=== PATIENT | female | born 1985 | race Caucasian/White ===

== ENCOUNTER → 2017-08-08 08:30 | Outpatient (CLI) | payer BC, SELFPAY ==
[2017-08-08 12:22] LABS: ALB/GLOB Ratio 0.8 RATIO (0.9-2.4); AST(SGOT) 16 U/L (15-37); Alanine Aminotransfer ALT/SGPT 23 U/L (13-56); Albumin, Serum 3.2 g/dL (3.2-5.0); Alkaline Phosphatase 55 U/L (45-117); Anion Gap 8 (5-15); BUN 8 mg/dL (7-18); BUN/Creat Ratio 14.6 RATIO (10-20); Calcium,Total 8.7 mg/dL (8.5-10.1); Chloride 105 mmol/L (98-107); Cholesterol 201 mg/dL (200); Creatinine, Serum 0.55 mg/dL (0.55-1.02); EST Glomerular Filtration Rate 139 mL/min (>60); Est Glom Filt Rate - Afr Amer 168 mL/min (>60); Globulin 4.1 g/dL (2.2-4.2); Glucose 80 mg/dL (70-110); High Density Lipoprotein 51 mg/dL; Potassium 3.6 mmol/L (3.5-5.1); Protein, Total 7.3 g/dL (6.4-8.2); Sodium Level 139 mmol/L (136-145); Triglycerides 189 mg/dL; Very Low Density Lipoprotein 38 mg/dL (5-40)
[2017-08-08 12:25] LABS: Absolute Lymphocyte Count 1.64 X10^3/ul (0.83-4.51); Absolute Neutrophil Count 5.2 X10^3/uL (2.0-7.7); Basophil# 0.02 X10^3/uL; Basophil% 0.3 % (0-1); Eosinophil# 0.14 X10^3/uL; Eosinophils% 1.9 % (0-5); Hematocrit 35.7 % (37-47); Hemoglobin 12.1 g/dl (12.0-15.0); Lymphocyte # 1.64 X10^3/ul (4.0); Lymphocyte % 21.8 % (19-41); Mean Corp Hgb Conc 33.9 g/gl (32-36); Mean Corpuscular Hgb 30.7 pg (27.0-32.0); Mean Corpuscular Volume 90.6 fL (81-99); Mean Platelet Vol. 9.8 fl (6.2-12.0); Monocyte# 0.48 X10^3/uL; Monocyte% 6.4 % (0-10); Neutrophil # 5.21 X10^3/uL (2.7-7.7); Neutrophil % 69.3 % (47-70); Platelet Count 302 K/mm3 (150-450); RBC Distribution Width CV 13.4 % (11.6-14.6); RBC Distribution Width SD 43.5 fl (35.1-43.9); Red Blood Count 3.94 M/mm3 (4.2-5.4); White Blood Count 7.5 K/mm3 (4.4-11.0)
[2017-08-08 12:41] LABS: POSITIVE COUNT NO; POSITIVE DIFFERENTIAL NO; POSITIVE MORPHOLOGY NO
== END ==
PROVIDERS: Family Provider Family Medicine; PCP Family Medicine; Visit Provider Family Medicine
DX: Z00.00 Encounter for general adult medical examination without abnormal findings (principal)
CPT/HCPCS: 36415; 80053; 80061; 85025

== ENCOUNTER 2017-11-19 16:05 | Outpatient (CLI) | payer BC, SELFPAY ==
[2017-11-19 16:23] LABS: Bacteria 0 SEEN /hpf (None Seen); Mucous, Urine 0 SEEN /hpf (<or=2+); Red Blood Cells-Urine 0 SEEN /hpf (0-5)
[2017-11-19 16:29] VITALS: BMI 27.2
[2017-11-19 16:29] LABS: Color, Urine Yellow (Yellow); Glucose, Dipstick Normal (Normal); Leukocyte Esterase-Dipstick 25 /ul (Negative); Nitrite-Dipstick Negative (Negative); Occult Blood-Urine Negative /ul (Negative); Protein-Dipstick Negative (Negative); Urine Bilirubin Dipstick Negative (Negative); Urine Clarity Sl. Cloudy (Clear); Urine Urobilinogen Normal (Normal)
[2017-11-19 16:51] LABS: Ketone-Dipstick 150 mg/dl (Negative)
[2017-11-19 16:54] LABS: Squamous Epithelial Cells - UA 0-5 SEEN /hpf (5-10); White Blood Cells 0-5 SEEN /hpf (0-5)
[2017-11-19 17:05] LABS: Absolute Lymphocyte Count 0.61 X10^3/ul (0.83-4.51); Absolute Neutrophil Count 12.4 X10^3/uL (2.0-7.7); Basophil# 0.02 X10^3/uL; Basophil% 0.1 % (0-1); Hematocrit 34.7 % (37-47); Hemoglobin 11.5 g/dl (12.0-15.0); Lymphocyte # 0.61 X10^3/ul (4.0); Lymphocyte % 4.4 % (19-41); Mean Corp Hgb Conc 33.1 g/gl (32-36); Mean Corpuscular Hgb 30.3 pg (27.0-32.0); Mean Corpuscular Volume 91.3 fL (81-99); Monocyte# 0.86 X10^3/uL; Monocyte% 6.1 % (0-10); Neutrophil # 12.43 X10^3/uL (2.7-7.7); Neutrophil % 88.9 % (47-70); POSITIVE COUNT NO; POSITIVE DIFFERENTIAL NO; POSITIVE MORPHOLOGY NO; Platelet Count 234 K/mm3 (150-450); RBC Distribution Width CV 12.9 % (11.6-14.6); RBC Distribution Width SD 42.7 fl (35.1-43.9)
--- NOTE | 2017-11-19 17:13 | US_ITS ---
STUDY: ABDOMINAL ULTRASOUND - RIGHT UPPER QUADRANT REASON FOR VISIT: Female, 32 years old. Abdominal pain TECHNIQUE: Ultrasound evaluation of the right upper quadrant was performed with real-time and static rendon-scale imaging. TECHNICAL QUALITY: Adequate. COMPARISON: None. FINDINGS: Liver: The liver measures 15.8 cm. There is normal echogenicity of the liver. The bile ducts are within normal limits. There is hepatic color flow. The direction of portal flow is hepatopetal. There is no demonstrated mass lesion. Gallbladder: Normal distended gallbladder. The gallbladder wall measures 2 mm. There is a fold noted in the gallbladder. There is a negative sonographic Quiles's sign. There is no pericholecystic fluid. There are no gallstones. Common Bile Duct (C.B.D.): The common bile duct measures 4 mm. Pancreas: Normal size of the head, body and tail of the pancreas. There is normal echogenicity of the pancreas. There is no demonstrated pancreatic mass or cyst. Right Kidney: Normal size of the right kidney. The right kidney measures 12.5 x 5.9 x 5.4 cm. Normal renal cortex. The right cortex measures 2.8 cm. There is no demonstrated renal mass or cyst. There is no right hydronephrosis. US/Gallbladder IMPRESSION: Normal right upper quadrant ultrasound examination. Electronically Signed: Kory Carrion DO at 19:41 EDT Tel [phone], Service support ,
--- NOTE | 2017-11-19 17:27 | OB.TRI.NOTE ---
- Problem List (1) RUQ abdominal pain Status: Acute (2) Abdominal pain affecting Status: Acute History of Present Illness Date of Service: 11/19/17 Was patient seen by the physician?: Yes Reason For Visit: BACK PAIN Date of Service: 11/19/17 Final TUSHAR: 02/04/18 Gestational age: 29 Weeks and 0 Days History of Present Illness: 32 year old at 29w0d by LMP. Patient present to L&D with complaint of mid back pain that started to develop RUQ abdominal pain. Complaint of nausea without difficulty. Denies any headache, scotoma, chest pain, shortness of breath, vaginal bleeding, contractions, urinary frequency, urgency, or dysuria. present with patient at bedside. Home Medications Medication Instructions Recorded Ferrous Sulfate [Iron] 325 mg PO DAILY 11/19/17 Vitamins 1 tab PO DAILY 11/19/17 Tylenol 650 mg PO PRN PRN 11/19/17 Allergies No Known Allergies Allergy (Verified 11/19/17 16:25) Physical Exam General: Alert, Oriented x3, No apparent distress Cardiovascular: Regular rate, Regular Rhythm, No murmurs Lungs: Clear to auscultation, No rhonchi, No wheeze Abdomen: Bowel Sounds Present, No Hepato-splenomegaly, Gravid, - - RUQ pain, rates pain 5/10. Quiles's sign positive. No CVAT. McBurney's point negative, no rebound tenderness or guarding. Extremities:: No edema Cervix Dilation (cm): 1 - thick/high NST - FHR Rate Baby A Baseline: 170-190 Variability:: Moderate Accelerations:: 15 x 15 Decelerations:: None NST Reactive:: Yes FHR Category:: Category II Uterine Activity:: None Impression/Plan A:32 year old at 29w0d single IUP Right upper quadrant abdominal pain tachycardia, Category 2 tracing P: 1) Assessment completed and suspect cholecystitis. 2) RUQ ultrasound to rule out cholelithiasis. 3) Labs: CBC, CMP, amylase, lipase, fibrinogen, PT/INR, ptt, UA, urine culture. 4) IV placement. 1 liter LR IV fluid bolus then KVO. 5) Clear liquid diet 6) Demerol 50mg IVP once for pain 7) GI cocktail 30ml PO once 8) notified of co-management of patient. Discussed clinical findings and agrees with plan. Reviewed tachycardia and recommends fluid bolus at this time but no further recommendations unless FHT reaches 220bpm or FHR decelerations. Lana Palencia CNM
[2017-11-19] MEDS: Lactated Ringers 1,000 ML 999 ML IV (17:30)
[2017-11-19 17:58] LABS: ALB/GLOB Ratio 0.7 RATIO (0.9-2.4); AST(SGOT) 38 U/L (15-37); Alanine Aminotransfer ALT/SGPT 28 U/L (13-56); Alkaline Phosphatase 86 U/L (45-117); Amylase 40 U/L (25-115); Anion Gap 14 (5-15); BUN 6 mg/dL (7-18); BUN/Creat Ratio 9.5 RATIO (10-20); Calcium,Total 9.1 mg/dL (8.5-10.1); Chloride 101 mmol/L (98-107); Creatinine, Serum 0.63 mg/dL (0.55-1.02); EST Glomerular Filtration Rate 117 mL/min (>60); Est Glom Filt Rate - Afr Amer 142 mL/min (>60); Estimated Creatinine Clearance 108.01 ml/min; Globulin 4.6 g/dL (2.2-4.2); Glucose 90 mg/dL (74-106); Lipase 121 U/L (73-393); Potassium 3.6 mmol/L (3.5-5.1); Protein, Total 7.6 g/dL (6.4-8.2); Sodium Level 134 mmol/L (136-145)
[2017-11-19 18:02] LABS: International Normalized Ratio 1.1; Partial Thromboplast Time 29.7 Seconds (24.1-36.2); Prothrombin Time (Protime)PT. 14.2 SECONDS (11.7-14.9)
[2017-11-19 18:11] LABS: Fibrinogen 540 mg/dl (203-444)
[2017-11-20 05:59] LABS: Absolute Lymphocyte Count 0.76 X10^3/ul (0.83-4.51); Basophil# 0.02 X10^3/uL; Basophil% 0.1 % (0-1); Eosinophil# 0.01 X10^3/uL; Eosinophils% 0.1 % (0-5); Hematocrit 30.1 % (37-47); Hemoglobin 10.1 g/dl (12.0-15.0); Lymphocyte # 0.76 X10^3/ul (4.0); Lymphocyte % 5.1 % (19-41); Mean Corp Hgb Conc 33.6 g/gl (32-36); Mean Corpuscular Hgb 31.3 pg (27.0-32.0); Mean Corpuscular Volume 93.2 fL (81-99); Mean Platelet Vol. 8.9 fl (6.2-12.0); Monocyte# 1.03 X10^3/uL; Monocyte% 6.9 % (0-10); Neutrophil % 87.2 % (47-70); Platelet Count 219 K/mm3 (150-450); RBC Distribution Width CV 12.8 % (11.6-14.6); RBC Distribution Width SD 41.7 fl (35.1-43.9); Red Blood Count 3.23 M/mm3 (4.2-5.4); White Blood Count 14.9 K/mm3 (4.4-11.0)
[2017-11-20 06:09] LABS: POSITIVE COUNT NO; POSITIVE DIFFERENTIAL NO; POSITIVE MORPHOLOGY NO
--- NOTE | 2017-11-20 07:46 | PCM.PN.BLA ---
Progress Note i reevaluated patient- she is doing better today- mild nausea earlier this morning no vomiting. denies Blurry vision or epigastric pain. pt reports pain is now in lower back radiating down both legs. no vaginal bleeding and good FM. will get NST and then likely dc home today with follow up as scheduled next week. EXAM: gen; white female in NAD abd: soft, gravid, non tender- NO RUQ pain a/p: 32yo @ 29wk gestation with Lower back pain 1) labs reviewed and U/S reviewed- no acute cause of Nausea/RUQ pain that was concerning on arrival
[2017-11-20 17:39] VITALS: BMI 26.9
[2017-11-20] MEDS: Acetaminophen 500 MG Tablet 1000 MG PO (18:00)
[2017-11-20 18:29] LABS: Absolute Lymphocyte Count 0.71 X10^3/ul (0.83-4.51); Absolute Neutrophil Count 11.7 X10^3/uL (2.0-7.7); Basophil# 0.02 X10^3/uL; Basophil% 0.2 % (0-1); Eosinophil# 0.01 X10^3/uL; Eosinophils% 0.1 % (0-5); Hematocrit 31.4 % (37-47); Hemoglobin 10.5 g/dl (12.0-15.0); Lymphocyte # 0.71 X10^3/ul (4.0); Lymphocyte % 5.4 % (19-41); Mean Corp Hgb Conc 33.4 g/gl (32-36); Mean Corpuscular Hgb 30.8 pg (27.0-32.0); Mean Corpuscular Volume 92.1 fL (81-99); Mean Platelet Vol. 8.9 fl (6.2-12.0); Monocyte# 0.76 X10^3/uL; Monocyte% 5.8 % (0-10); Neutrophil # 11.68 X10^3/uL (2.7-7.7); Neutrophil % 88.3 % (47-70); Platelet Count 214 K/mm3 (150-450); RBC Distribution Width CV 13.1 % (11.6-14.6); RBC Distribution Width SD 43.6 fl (35.1-43.9); Red Blood Count 3.41 M/mm3 (4.2-5.4); White Blood Count 13.2 K/mm3 (4.4-11.0)
[2017-11-20 18:36] LABS: POSITIVE COUNT NO; POSITIVE DIFFERENTIAL NO; POSITIVE MORPHOLOGY NO
--- NOTE | 2017-11-20 20:30 | NURSING ---
@ 2029 report given for transfer to ED for evaluation of chest pain per Dr. Hammonds
--- NOTE | 2017-11-21 07:44 | OB.TRI.NOTE ---
History of Present Illness Date of Service: 11/20/17 Was patient seen by the physician?: No Reason For Visit: BACK PAIN Date of Service: 11/20/17 Final TUSHAR: 02/04/18 Gestational age: 29 Weeks and 2 Days History of Present Illness: 32yo @ 29+ wks gestation presents for return of lower back and abdominal pain. No vaginal bleeding, no LOF, no ctx, no diarrhea or fevers. Home Medications Medication Instructions Recorded Ferrous Sulfate [Iron] 325 mg PO DAILY 11/19/17 Vitamins 1 tab PO DAILY 11/19/17 Tylenol 650 mg PO PRN PRN 11/19/17 Cephalexin [Keflex] 500 mg PO Q6 #40 cap 11/20/17 Allergies No Known Allergies Allergy (Verified 11/20/17 17:33) NST - FHR Rate Baby A Baseline: 145 Variability:: Moderate Accelerations:: 15 x 15 Decelerations:: None NST Reactive:: Yes FHR Category:: Category I Uterine Activity:: no Impression/Plan 32yo @ 29+ wks with lower back pain 1) CBC reveals decreasing WBC- VS are stable here there are no signs of acute infection or disease process 2) pt did complain of chest pain- was sent to ER for further evaluation 3) Dc home
== END 2017-11-20 20:15 | disposition home or self-care (01) ==
LOC: WPOUT 16:07 → WP 11-20 08:35
PROVIDERS: Advanced Practice Midwife; Family Provider Family Medicine; PCP Family Medicine; Visit Provider Obstetrics & Gynecology
DX: O76 Abnormality in fetal heart rate and rhythm complicating labor and delivery (principal); M54.5 Low back pain; R10.11 Right upper quadrant pain; Z3A.29 29 weeks gestation of pregnancy
CPT/HCPCS: 36415; 59025; 59050; 76705; 80053; 81001; 82150; 83690; 85025; 85384; 85610; 85730; 99218; J7120; A4216; G0378

== ENCOUNTER 2017-11-20 20:47 | Emergency (ER) | payer BC, SELFPAY ==
[2017-11-20 20:48] VITALS: BP 104/56; PULSE 111; RESP 20; TEMP 36.5; O2SAT 96; BMI 27.1
--- NOTE | 2017-11-20 21:45 | EKG12_ITS ---
Test Reason : CHEST PAIN Blood Pressure : / mmHG Vent. Rate : 093 BPM Atrial Rate : 093 BPM P-R Int : 126 ms QRS Dur : 086 ms QT Int : 346 ms P-R-T Axes : 047 049 019 degrees QTc Int : 430 ms Normal sinus rhythm Normal ECG Confirmed by AGUILA CHOWDHURY, TIMO ([id number]), newspaper editor PURVI GRACIA ([id number]) on 11/25/2017 2:16:52 PM Referred By: BERNARD Confirmed By:TIMO SHEEHAN MD
[2017-11-20 21:48] VITALS: BP 104/66; PULSE 99; RESP 16; O2SAT 97
[2017-11-20] MEDS: 0.9% Normal Saline 1,000 ML 150 ML IV (21:58)
--- NOTE | 2017-11-20 21:58 | NURSING ---
NO OLD EKG TO OBTAIN
[2017-11-20 22:00] VITALS: BP 110/85; PULSE 97; RESP 14; O2SAT 99
--- NOTE | 2017-11-20 22:00 | RAD_ITS ---
STUDY: X-RAY CHEST REASON FOR EXAM: Female, 32 years old. Chest pain TECHNIQUE: Single frontal view of the chest. COMPARISON: None. FINDINGS: The lungs are clear and expanded. There is no demonstrated pleural abnormality. Normal size heart. Normal mediastinum and irma. Normal visualized pulmonary arteries. Normal visualized aortic arch and descending thoracic aorta. Normal visualized thoracic spine. Normal visualized ribs, clavicles, and shoulders. There is no demonstrated abnormality of the visualized soft tissue structures of the upper abdomen. RAD/Chest 1 View (Portable) IMPRESSION: Normal x-ray examination of the chest. Electronically Signed: Jose Lee MD at 22:11 EDT Tel , Service support ,
[2017-11-20 22:05] LABS: Absolute Lymphocyte Count 0.86 X10^3/ul (0.83-4.51); Absolute Neutrophil Count 11.1 X10^3/uL (2.0-7.7); Basophil# 0.01 X10^3/uL; Basophil% 0.1 % (0-1); Eosinophil# 0.02 X10^3/uL; Eosinophils% 0.1 % (0-5); Hematocrit 32.9 % (37-47); Lymphocyte # 0.86 X10^3/ul (4.0); Lymphocyte % 6.4 % (19-41); Mean Corp Hgb Conc 33.4 g/gl (32-36); Mean Corpuscular Hgb 30.6 pg (27.0-32.0); Mean Corpuscular Volume 91.4 fL (81-99); Monocyte# 1.39 X10^3/uL; Monocyte% 10.3 % (0-10); Neutrophil # 11.14 X10^3/uL (2.7-7.7); Neutrophil % 82.7 % (47-70); POSITIVE COUNT NO; POSITIVE DIFFERENTIAL NO; POSITIVE MORPHOLOGY NO; Platelet Count 226 K/mm3 (150-450); RBC Distribution Width CV 12.9 % (11.6-14.6); RBC Distribution Width SD 43.2 fl (35.1-43.9); White Blood Count 13.5 K/mm3 (4.4-11.0)
--- NOTE | 2017-11-20 22:05 | CT_ITS ---
STUDY: CTA CHEST REASON FOR EXAM: Female, 32 years old. Back pain, 38 weeks RADIATION DOSAGE (If Supplied By Facility): CTDIvol = ( 8.05 ) mGy, DLP = ( 338.84 ) mGycm TECHNIQUE: The examination was performed with the intravenous administration of 100ML ml of Isovue 370 contrast material. Post-processing of the angiographic images was performed, with multiplanar reformation and 3D reconstruction. Individualized dose optimization techniques were used for this CT. COMPARISON: None. FINDINGS: The contrast bolus is suboptimal for detecting small or distal pulmonary emboli. No large or central pulmonary emboli are seen. Normal thoracic aorta and visualized great vessels. There is no demonstrated aortic dissection. Normal heart and pericardium. Normal mediastinum. Normal hilar regions. Normal visualized trachea and bronchi. The lungs are well expanded. Normal pulmonary parenchyma. Normal pleura. Normal chest wall structures. Normal osseous structures. Normal visualized upper abdomen. CT/CTA Chest W/WO Contrast IMPRESSION: The contrast bolus is suboptimal for detecting small or distal pulmonary emboli. No large or central pulmonary emboli are seen. Electronically Signed: Jose Lee MD at 23:05 EDT Tel , Service support ,
[2017-11-20 22:27] LABS: Mucous, Urine 0 SEEN /hpf (<or=2+); Red Blood Cells-Urine 0 SEEN /hpf (0-5)
--- NOTE | 2017-11-20 22:30 | ED.VISSUMM ---
- ER Visit Summary Date of Service: 11/20/17 Chief Complaint: [] Bilateral back pain for a few days with chest pain 28 weeks History of Present Illness: The patient is a 32 F [] having some abdominal pain rating to her back for the last few days she has been seen twice in OB center she has had labs ultrasounds were unremarkable she was seen there this morning workup was unremarkable she called them back and said she is having more discomfort and she was sent to the emergency department she indicates the pain is to the right and left parathoracic region of the mid thoracic level she suffered no trauma to the area the pain seems to be slightly worse when she takes a deep breath or moves but she has had no trauma to her body no fever no cough. She is not having any abdominal pain now was having some yesterday and ultrasound was done that showed normal unremarkable gallbladder. She indicates her bowel bladder habits have been normal this is her second the other one was uncomplicated this 1 to date is uncomplicated she has had no bleeding and again normal bowel bladder habits no fever no cough history of NE PE DVT or pneumonia Physical Examination: [] She is resting company in the bed her vital signs are normal head neck unremarkable lungs are clear heart tones are normal the abdomen soft nontender obviously the abdomen is again is soft and nontender the midline back is nontender there is again discomfort subjectively to the right and left parathoracic region this area of the body on inspection and palpation she is unremarkable with no flank pain no crepitance or subcu air no bruising or contusion upper lower extremity unremarkable heart size, or edema or any signs of DVT note she 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 Test Results: [] Emergency Department Course and Treatment: [] All of the above given her prior negative workup over the last 2 days obtain screening labs CT of her chest we will shield her abdomen she understands the risk of radiation etc. contrast reaction etc. 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 It may contain incorrect words, spelling, and punctuation that were not noted in review of the chart prior to signing ED Disposition - Plan for ED Patient: Chief Complaint: Chest Pain Referrals: Tamara Tobias DO [Primary Care Provider] -
[2017-11-20 22:33] LABS: Color, Urine Yellow (Yellow); Glucose, Dipstick Normal (Normal); Leukocyte Esterase-Dipstick 500 /ul (Negative); Nitrite-Dipstick Negative (Negative); Occult Blood-Urine 10 /ul (Negative); Protein-Dipstick Negative (Negative); Specific Gravity, Urine 1.015 (1.002-1.030); Urine Bilirubin Dipstick Negative (Negative); Urine Clarity Cloudy (Clear); Urine Urobilinogen Normal (Normal)
[2017-11-20 22:45] LABS: Anion Gap 12 (5-15); BUN 5 mg/dL (7-18); BUN/Creat Ratio 9.8 RATIO (10-20); Calcium,Total 8.9 mg/dL (8.5-10.1); Chloride 103 mmol/L (98-107); Creatinine, Serum 0.51 mg/dL (0.55-1.02); EST Glomerular Filtration Rate 150 mL/min (>60); Est Glom Filt Rate - Afr Amer 181 mL/min (>60); Estimated Creatinine Clearance 133.43 ml/min; Glucose 95 mg/dL (74-106); Potassium 3.6 mmol/L (3.5-5.1); Sodium Level 138 mmol/L (136-145)
[2017-11-20 22:47] LABS: Ketone-Dipstick 150 mg/dl (Negative)
[2017-11-20 22:54] LABS: Bacteria 1+ /hpf (None Seen); White Blood Cells 10-25 SEEN /hpf (0-5)
[2017-11-20 22:57] LABS: Squamous Epithelial Cells - UA 0-5 SEEN /hpf (5-10)
[2017-11-20 22:58] LABS: Yeast-Urine 1+ /hpf (None Seen)
[2017-11-20 23:04] LABS: AST(SGOT) 31 U/L (15-37); Alanine Aminotransfer ALT/SGPT 29 U/L (13-56); Albumin, Serum 2.8 g/dL (3.2-5.0); Alkaline Phosphatase 92 U/L (45-117); Bilirubin, Direct 0.17 mg/dL (0.00-0.30); Globulin 4.7 g/dL (2.2-4.2); Protein, Total 7.5 g/dL (6.4-8.2)
[2017-11-20 23:12] LABS: Lipase 149 U/L (73-393)
--- NOTE | 2017-11-20 23:25 | ED.DEP ---
ED Disposition - Plan for ED Patient: Chief Complaint: Chest Pain Instructions: ED Chest Pain Atypical Unkn Cause, ED UTI Cystitis Female Prescriptions: Cephalexin [Keflex] 500 mg PO Q6 #40 cap Referrals: Tamara Tobias DO [Primary Care Provider] -
[2017-11-20] MEDS: Cephalexin 250 MG Capsule 500 MG PO (23:34)
[2017-11-20 23:39] VITALS: BP 98/68; PULSE 104; RESP 15; O2SAT 97
--- NOTE | 2017-11-20 23:40 | ED.RN ---
pt given written and verbal discharge instructions and home going instructions. pt verbalizes understanding. pt iv d/c and covered with 2x2 gauze dressing and paper tape. pt dresses self and ambulates out of dept. with .
== END 2017-11-20 23:44 | disposition home or self-care (01) ==
PROVIDERS: Emergency Provider Emergency Medicine; Family Provider Family Medicine; PCP Family Medicine
DX: M54.9 Dorsalgia, unspecified (principal); O23.42 Unspecified infection of urinary tract in pregnancy, second trimester; Z3A.28 28 weeks gestation of pregnancy
CPT/HCPCS: 71045; 71275; 80048; 80076; 81001; 83690; 84484; 85025; 87086; 87088; 93005; 99284; J7040; Q9967

== ENCOUNTER 2018-01-12 18:15 | Outpatient (CLI) | payer BC, SELFPAY ==
[2018-01-12 18:32] VITALS: BMI 28.8
--- NOTE | 2018-01-13 08:02 | OB.TRI.NOTE ---
- Problem List (1) False labor before 37 completed weeks of gestation Status: Acute History of Present Illness Date of Service: 01/12/18 Was patient seen by the physician?: No Reason For Visit: R/O LABOR Date of Service: 01/12/18 Final TUSHAR: 02/04/18 Gestational age: 36 Weeks and 6 Days History of Present Illness: Presented to L&D with complaint of contractions that started around 0200 this am. Throughout the day contractions increased in strength and frequency to every 8-10 minutes, lasting 45 seconds, and needing to breath through each contraction. Attempted hydration at home and rest and no resolution. Denied any leakage of fluid, vaginal bleeding or decreased movement. Allergies No Known Allergies Allergy (Verified 01/12/18 18:36) Physical Exam Cervix Dilation (cm): 0 Station: -3 Effacement (%): 50 NST - FHR Rate Baby A Baseline: 125 Variability:: Moderate Accelerations:: 15 x 15 Decelerations:: None NST Reactive:: Yes FHR Category:: Category I Uterine Activity:: Irregular Impression/Plan A:32 year old female at 36w6d by LMP False Labor, Category 1 FHT P: 1) Discharge home. Labor instructions reviewed and when to call by nursing staff. Return for routine visit.
== END 2018-01-12 21:55 | disposition home or self-care (01) ==
LOC: WPOUT 18:28 → WP 18:28
PROVIDERS: Family Provider Family Medicine; PCP Family Medicine; Visit Provider Obstetrics & Gynecology
DX: O47.03 False labor before 37 completed weeks of gestation, third trimester (principal); Z3A.36 36 weeks gestation of pregnancy
CPT/HCPCS: 59025; 59050; 99218; G0378

== ENCOUNTER 2018-02-03 20:10 | Outpatient (CLI) | payer BC, SELFPAY ==
[2018-02-03 20:40] VITALS: BMI 29.5
[2018-02-03 22:05] VITALS: RESP 18
--- NOTE | 2018-02-03 22:18 | OB.TRI.NOTE ---
History of Present Illness Was patient seen by the physician?: Yes Reason For Visit: R/O LABOR Date of Service: 02/03/18 Final TUSHAR: 02/04/18 Gestational age: 39 Weeks and 6 Days Allergies No Known Allergies Allergy (Verified 02/03/18 21:13) Physical Exam Vitals: Vital Signs Resp 18 02/03/18 22:05 NST - FHR Rate Baby A Baseline: 120 Variability:: Moderate Accelerations:: 15 x 15 Decelerations:: None NST Reactive:: Yes Uterine Activity:: irregular Impression/Plan Reactive NST for false labor
== END 2018-02-03 22:05 | disposition home or self-care (01) ==
LOC: WPOUT 20:58 → WP 02-04 14:08
PROVIDERS: Family Provider Family Medicine; PCP Family Medicine; Visit Provider Obstetrics & Gynecology
DX: O47.1 False labor at or after 37 completed weeks of gestation (principal); Z3A.39 39 weeks gestation of pregnancy
CPT/HCPCS: 59025; 59050; 99218; G0378

== ENCOUNTER 2018-02-11 09:30 | Inpatient (IN) | payer BC, SELFPAY ==
[2018-02-11 09:53] VITALS: BMI 29.2
[2018-02-11] MEDS: Lactated Ringers 1,000 ML 50 ML IV ×2 (10:15→11:31)
[2018-02-11] MEDS: Oxytocin 30 units/NS 500 ml 30 UNITS/500 ML IV.SOLN IV (10:29)
[2018-02-11 10:36] LABS: Hematocrit 39.1 % (37-47); Hemoglobin 12.9 g/dl (12.0-15.0); Mean Corpuscular Hgb 30.7 pg (27.0-32.0); Mean Corpuscular Volume 93.1 fL (81-99); Mean Platelet Vol. 9.8 fl (6.2-12.0); Platelet Count 210 K/mm3 (150-450); RBC Distribution Width CV 14.1 % (11.6-14.6); RBC Distribution Width SD 47.5 fl (35.1-43.9); White Blood Count 9.1 K/mm3 (4.4-11.0)
[2018-02-11 10:38] LABS: Scan Indicated on CBC? Y/N NO
--- NOTE | 2018-02-11 12:19 | PCM.HP.OB ---
History Date of Admission: 02/11/18 Final TUSHAR: 02/04/18 Gestational age: 41 Weeks and 0 Days History of this : This is a 32 year-old, at 41 weeks gestational age here for IOL for post EDC, non reactive NST in office today. pt denies vb, or lof but reports Good FM and irregular contractions. Allergies No Known Allergies Allergy (Verified 02/03/18 21:13) Home Medications: Home Medications Ferrous Sulfate [Iron] 325 mg PO DAILY 11/19/17 Vitamins 1 tab PO DAILY 11/19/17 Smoking Status: Never smoker Alcohol: None Number of Fetus(es): 1 Heart Tracin mod berna, + accels no decels TOCO Analysis: irregular History Past Pregnancies: Past Pregnancies Delivery Date Name GA/Weeks Outcome Route Weight Gender Labor Length Anesthesia Delivery Location Provider FOB Labs: A+, GBS neg, Maternity 21 neg, hiv neg, hepb neg, rub imm, syphilis neg Physical Exam General: Alert, Oriented x3 Abdomen: Soft, Non Tender, Gravid Neurological: Cranial nerves II-XII grossly intact ESCAPEMENT MAKER: Normal external genitalia Estimated gestational size: Appropriate for gestational size Presentation: Cephalic Cervix Dilation (cm): 5.5 Station: -2 Effacement (%): 80 Assessment/Plan All Active Problems RUQ abdominal pain (Acute) Abdominal pain affecting (Acute) False labor before 37 completed weeks of gestation (Acute) This is a 32 year-old, at 41 weeks gestational age here for IOL 1) admit to L&D 2) epidural for pain mgmt 3) arom- performed - Clear- large amt of fluid 4) monitor fhr/toco 5) pitocin as indicated 6) anticipate
[2018-02-11] MEDS: Oxytocin 30 units/NS 500 ml 30 UNITS/500 ML IV.SOLN 334 UNITS IV (14:25)
--- NOTE | 2018-02-11 14:36 | PCM.OB.VAG ---
Vaginal Delivery Maternal Presentation: Medically Indicated Induction Method of Induction: Pitocin, Amniotomy Medical Reason for Induction: Post term Amniotic Membrane Rupture Type: Artificial Amniotic Fluid Description: Clear Final TUSHAR: 02/04/18 Gestational age: 41 Weeks and 0 Days Date of Procedure: 02/11/18 Pre-Operative Diagnosis: post term Post-Operative Diagnosis: same, live female Surgery/ Procedure Performed: Spontaneous Vaginal Delivery Type of Anesthesia: Epidural Description of Procedure: of live female infant born without complication. Loose nuchal x 1- reduced prior to delivery. Presentation: Vertex Placental Delivery Description: Spontaneous Placenta Disposition: [facility] Cord Vessel Description: 3 Vessels Nuchal Cord Compression: Without compression Cord Entanglement: Around neck x 1, loose Drain: Jacobsen to straight drain Estimated Blood Loss: 250 Infant A gender: Female (1 minute): 8 (5 minute): 9 Episiotomy Description: None Laceration: Perineal Extension/lac - repaired with 2-0 vicryl, 2nd degree Medications given after delivery: IV Pitocin Complications: None
[2018-02-11] MEDS: Naproxen 250 MG Tablet PO (19:56)
[2018-02-11 19:58] VITALS: BP 107/72; PULSE 75; RESP 18; TEMP 36.3
[2018-02-11 20:43] VITALS: BP 99/52; PULSE 70; RESP 18; TEMP 36.7
--- NOTE | 2018-02-11 23:28 | DCINST_ITS ---
Discharge Diet: No Restrictions Discharge Activity: Return to Normal Activity, May not drive while taking narcotic pain medications., May Shower May resume sexual activity in: 4-6 weeks Additional Activity Instructions:: Nothing in the vagina for 4-6 weeks. You may return to work/school in 6 weeks. Call your doctor if your incision/area has: Continuous Slow Oozing, Sudden Increased Bleeding, Increased Pain/ Swelling, Increased Redness, Foul Smelling Discharge Additional Instructions: If you experience any of the following, contact your healthcare provider. * Bleeding that soaks a pad every hour for 2 hours * Fever 100.4 or higher * Unrelieved incision or abdominal pain * Swelling, redness, discharge or bleeding from your incision or episiotomy site * Your incision begins to separate * Problems urinating (including inability to urinate or burning while urinating) . * Visual changes * Severe headache * Flu-like symptoms * Pain or redness in one of both of your breasts * Pain, warmth, tenderness or swelling in your legs, especially the calf area * Frequent nausea and vomiting * Symptoms of depression or anxiety If you experience any of the following, call 911 or go to the nearest Emergency Room. * Chest pain * Problems breathing * Seizure activity * Partial or complete paralysis of a body part, slurred speech, weakness or drooping of the face, or a sudden inability to walk or hold your balance Allergies/Adverse Reactions: Allergies No Known Allergies Allergy (Verified 02/03/18 21:13) Medications to take at Discharge Vitamins 1 tab PO DAILY 11/19/17 Naproxen [Naprosyn] 250 - 500 mg PO Q8H PRN PRN #30 tab 02/11/18 The following prescriptions were given: Naproxen [Naprosyn] 250 - 500 mg PO Q8H PRN PRN #30 tab PRN Reason: Mild Pain (1-3) When: Call to make an appointment with your doctor in 6 weeks. If you had elevated Blood Pressure or 4th degree laceration you will need to be seen in 2 weeks. Primary Care Physician: Tamara Tobias DO [Primary Care Provider] - Test Results: Test results from this visit will be discussed in further detail at your follow- up appointment, if applicable.
[2018-02-12] MEDS: Acetaminophen 500 MG Tablet 1000 MG PO ×2 (01:09→18:52)
[2018-02-12 01:10] VITALS: BP 101/72; PULSE 84; RESP 18; TEMP 36.4
[2018-02-12 04:20] VITALS: BP 102/63; PULSE 82; RESP 18; TEMP 36.3
--- NOTE | 2018-02-12 08:02 | PCM.PN.OB ---
Subjective: pt seen at bedside, doing well. pt reports good pain control. lochia mild. breast feeding well. - Physical Exam General: Alert, Oriented x3 Abdomen: Soft, Non-Distended, - - fundus firm Extremities: No Calf Tenderness Vital Signs Temp Pulse Resp BP 97.3 F L 82 18 102/63 02/12/18 04:20 02/12/18 04:20 02/12/18 04:20 02/12/18 04:20 Oxygen Delivery Method Room Air Weight: 74.843 kg Body Mass Index (BMI) 29.2 Intake and Output for Last 24 Hours 02/10/18 02/11/18 02/12/18 23:59 23:59 23:59 Intake Total 2300 / 2300 Output Total 1800 / 1800 Balance 500 / 500 Laboratory Tests Past 24 Hrs 02/11/18 02/11/18 10:15 10:15 WBC 9.1 RBC 4.20 Hgb 12.9 Hct 39.1 MCV 93.1 MCH 30.7 MCHC 33.0 RDW 14.1 RDW Differential 47.5 H Plt Count 210 MPV 9.8 Blood Type A POSITIVE Antibody Screen NEGATIVE Medical Necessity - Tobacco Use Smoking Status: Never smoker Assessment/Plan All Active Problems RUQ abdominal pain (Acute) Abdominal pain affecting (Acute) False labor before 37 completed weeks of gestation (Acute) PPD#1, doing well routine care pain mgmt ri home
[2018-02-12 09:29] VITALS: BP 108/63; PULSE 67; RESP 16; TEMP 36.2; O2SAT 97
[2018-02-12 15:30] VITALS: BP 101/71; PULSE 75; RESP 18; TEMP 36.8; O2SAT 97
[2018-02-12 20:05] VITALS: BP 105/71; PULSE 71; RESP 16; TEMP 36.7; O2SAT 100
[2018-02-13] MEDS: Naproxen 250 MG Tablet PO (00:23)
[2018-02-13 02:45] VITALS: BP 102/68; PULSE 69; RESP 18; TEMP 36.6; O2SAT 97
--- NOTE | 2018-02-13 09:01 | PCM.PN.OB ---
Subjective: No complaints - Physical Exam General: Alert, Oriented x3 Abdomen: Soft, Non Tender, Non-Distended - ff mid & below umb Extremities: No Calf Tenderness Vital Signs Temp Pulse Resp BP Pulse Ox 98 F 69 18 102/68 97 02/13/18 02:45 02/13/18 02:45 02/13/18 02:45 02/13/18 02:45 02/13/18 02:45 Oxygen Delivery Method Room Air Weight: 165 lb Body Mass Index (BMI) 29.2 Intake and Output for Last 24 Hours 02/11/18 02/12/18 02/13/18 23:59 23:59 23:59 Intake Total 2300 / 2300 Output Total 1800 / 1800 Balance 500 / 500 Medical Necessity - Tobacco Use Smoking Status: Never smoker Assessment/Plan All Active Problems RUQ abdominal pain (Acute) Abdominal pain affecting (Acute) False labor before 37 completed weeks of gestation (Acute) D/c home
[2018-02-13 09:45] VITALS: BP 100/65; PULSE 62; RESP 20; TEMP 36.9; O2SAT 95
== END 2018-02-13 10:15 | disposition home or self-care (01) | DRG 775 ==
PROVIDERS: Admitting Provider Obstetrics & Gynecology; Family Provider Family Medicine; PCP Family Medicine; Visit Provider Obstetrics & Gynecology
DX: O48.0 Post-term pregnancy (principal); O70.1 Second degree perineal laceration during delivery; O69.81X0 Labor and delivery complicated by cord around neck, without compression, not applicable or unspecified; Z37.0 Single live birth; Z3A.41 41 weeks gestation of pregnancy
CPT/HCPCS: 59025; 59050; 85027; 86850; 86900; 99218; J7120; G0378

== ENCOUNTER 2018-02-17 14:00 | Outpatient (CLI) | payer BC, SELFPAY | END 2018-02-17 15:00 | disposition home or self-care (01) | LOC: WPOUT 14:10 → WP 14:10 | PROVIDERS: Family Provider Family Medicine; PCP Family Medicine; Visit Provider Obstetrics & Gynecology | DX: Z39.1 Encounter for care and examination of lactating mother (principal) | CPT/HCPCS: 96152 ==

== ENCOUNTER → 2018-07-11 10:41 | Outpatient (CLI) | payer BC, SELFPAY ==
[2018-07-11 11:24] LABS: Absolute Lymphocyte Count 1.64 X10^3/ul (0.83-4.51); Absolute Neutrophil Count 4.2 X10^3/uL (2.0-7.7); Basophil# 0.03 X10^3/uL; Basophil% 0.5 % (0-1); Eosinophil# 0.12 X10^3/uL; Eosinophils% 1.9 % (0-5); Hematocrit 40.8 % (37-47); Hemoglobin 13.7 g/dl (12.0-15.0); Lymphocyte # 1.64 X10^3/ul (4.0); Lymphocyte % 25.9 % (19-41); Mean Corp Hgb Conc 33.6 g/gl (32-36); Mean Corpuscular Hgb 30.8 pg (27.0-32.0); Mean Corpuscular Volume 91.7 fL (81-99); Mean Platelet Vol. 8.8 fl (6.2-12.0); Monocyte# 0.37 X10^3/uL; Monocyte% 5.9 % (0-10); Neutrophil # 4.15 X10^3/uL (2.7-7.7); Neutrophil % 65.6 % (47-70); POSITIVE COUNT NO; POSITIVE DIFFERENTIAL NO; POSITIVE MORPHOLOGY NO; Platelet Count 352 K/mm3 (150-450); RBC Distribution Width CV 11.7 % (11.6-14.6); RBC Distribution Width SD 38.6 fl (35.1-43.9); Red Blood Count 4.45 M/mm3 (4.2-5.4); White Blood Count 6.3 K/mm3 (4.4-11.0)
[2018-07-11 11:54] LABS: AST(SGOT) 27 U/L (15-37); Alanine Aminotransfer ALT/SGPT 55 U/L (13-56); Alkaline Phosphatase 127 U/L (45-117); Anion Gap 8 (5-15); BUN 14 mg/dL (7-18); BUN/Creat Ratio 18.6 RATIO (10-20); Calcium,Total 9.2 mg/dL (8.5-10.1); Chloride 107 mmol/L (98-107); Cholesterol 159 mg/dL (200); Creatinine, Serum 0.75 mg/dL (0.55-1.02); EST Glomerular Filtration Rate 96 mL/min (>60); Est Glom Filt Rate - Afr Amer 116 mL/min (>60); Free T3 2.9 pg/mL (2.18-3.98); Globulin 3.9 g/dL (2.2-4.2); Glucose 92 mg/dL (74-106); High Density Lipoprotein 53 mg/dL; Potassium 4.2 mmol/L (3.5-5.1); Protein, Total 7.9 g/dL (6.4-8.2); Sodium Level 141 mmol/L (136-145); Thyroid Stim Hormone (TSH) 1.28 uIU/mL (0.358-3.74); Triglycerides 57 mg/dL; Very Low Density Lipoprotein 11 mg/dL (5-40)
[2018-07-11 12:23] LABS: T3 Total - Triiodothyronine 1.07 ng/mL (0.6-1.81)
== END ==
PROVIDERS: Family Provider Family Medicine; PCP Family Medicine; Referring Provider Family Medicine; Visit Provider Family Medicine
DX: R53.83 Other fatigue (principal); E78.1 Pure hyperglyceridemia
CPT/HCPCS: 36415; 80053; 80061; 84439; 84443; 84480; 84481; 85025

== ENCOUNTER → 2020-04-27 10:46 | Outpatient (CLI) | payer BC, SELFPAY ==
[2020-04-27 12:50] LABS: Progesterone Level 0.34 ng/mL (See Comment)
[2020-04-27 13:10] LABS: Estradiol < 11.0 pg/mL; Follicle Stimulating Hormone 0.2 mIU/mL; Free T3 2.7 pg/mL (2.18-3.98); Luteinizing Hormone < 0.2 mIU/mL; T4 Free Direct 0.95 ng/dL (0.76-1.46); Thyroid Stim Hormone (TSH) 1.59 uIU/mL (0.358-3.74)
[2020-05-01 14:08] LABS: Testosterone, Free 0.14 ng/dL (0.10-0.85); Testosterone, Total 7 ng/dL (8-48)
[2020-05-02 10:44] LABS: Testosterone, % Free 2.05 % (0.50-2.80)
== END ==
PROVIDERS: PCP Family Medicine; Visit Provider Family Medicine
DX: N93.8 Other specified abnormal uterine and vaginal bleeding (principal); L70.9 Acne, unspecified; R53.83 Other fatigue; N93.9 Abnormal uterine and vaginal bleeding, unspecified
CPT/HCPCS: 36415; 82670; 83001; 83002; 84144; 84402; 84403; 84439; 84443; 84481

== ENCOUNTER → 2020-08-05 07:10 | Outpatient (CLI) | payer BC, SELFPAY ==
[2020-08-05 08:59] LABS: Hemoglobin A1c 5.2 % (3.8-5.6)
[2020-08-05 10:32] LABS: ALB/GLOB Ratio 0.9 RATIO (0.9-2.4); AST(SGOT) 15 U/L (15-37); Alanine Aminotransfer ALT/SGPT 17 U/L (13-56); Albumin, Serum 3.7 g/dL (3.2-5.0); Alkaline Phosphatase 44 U/L (45-117); Anion Gap 6 (5-15); BUN 13 mg/dL (7-18); BUN/Creat Ratio 17.8 RATIO (10-20); Calcium,Total 8.6 mg/dL (8.5-10.1); Chloride 109 mmol/L (98-107); Creatinine, Serum 0.73 mg/dL (0.55-1.02); EST Glomerular Filtration Rate 97 mL/min (>60); Est Glom Filt Rate - Afr Amer 118 mL/min (>60); Ferritin 105 ng/mL (8-252); Free T3 2.8 pg/mL (2.18-3.98); Globulin 3.9 g/dL (2.2-4.2); Glucose 100 mg/dL (74-106); Iron 81 ug/dL (50-170); Iron Binding Capacity,Total 424 ug/dL (250-450); Prolactin 8.3 ng/mL; Protein, Total 7.6 g/dL (6.4-8.2); Rheumatoid Factor < 10.0 IU/mL (<15); Sodium Level 139 mmol/L (136-145); T4 Free Direct 0.97 ng/dL (0.76-1.46); Thyroid Stim Hormone (TSH) 3.43 uIU/mL (0.358-3.74)
[2020-08-07 02:05] LABS: ANTINUCLEAR ANTIBODIES DIRECT Negative (Negative)
[2020-08-07 09:40] LABS: Vitamin B12 358 pg/mL (211-911); Vitamin D,25 Hydroxy 33.2 ng/mL
[2020-08-07 16:08] LABS: Thyroid Peroxidase AB < 9 IU/mL (0-34)
[2020-08-07 17:01] LABS: Thyroglobulin Antibody < 1.0 IU/mL (0.0-0.9)
== END ==
PROVIDERS: PCP Family Medicine; Visit Provider Internal Medicine Endocrinology, Diabetes & Metabolism
DX: O26.899 Other specified pregnancy related conditions, unspecified trimester (principal); R89.1 Abnormal level of hormones in specimens from other organs, systems and tissues; Z86.69 Personal history of other diseases of the nervous system and sense organs; R61 Generalized hyperhidrosis; L65.9 Nonscarring hair loss, unspecified; Z3A.00 Weeks of gestation of pregnancy not specified
CPT/HCPCS: 36415; 80053; 82306; 82533; 82607; 82627; 82728; 83036; 83540; 83550; 84146; 84439; 84443; 84481; 86038; 86376; 86431; 86800; 82626

== ENCOUNTER → 2020-09-16 07:12 | Outpatient (CLI) | payer BC, SELFPAY ==
[2020-09-16 08:33] LABS: Creatinine, Serum 0.74 mg/dL (0.55-1.02); EST Glomerular Filtration Rate 95 mL/min (>60); Est Glom Filt Rate - Afr Amer 115 mL/min (>60)
[2020-09-16 09:37] LABS: Creat.Clear Total Volume 1600 mL; Creatinine Clearance 117 ml/min (100-200); Creatinine Serum Creat 0.7 mg/dL (0.6-1.0); Creatinine Urine 77.9 mg/dL (NO RANGE EST.); EST Glomerular Filtration Rate 96 mL/min (>60); Est Glom Filt Rate - Afr Amer 116 mL/min (>60)
[2020-09-26 03:07] LABS: Cortisol, Urinary Free 15 ug/L (Undefined)
[2020-09-26 08:50] LABS: Cortisol, Free 24Ur 24 ug/24 hr (6-42)
== END ==
PROVIDERS: PCP Family Medicine; Referring Provider Internal Medicine Endocrinology, Diabetes & Metabolism; Visit Provider Internal Medicine Endocrinology, Diabetes & Metabolism
DX: E34.9 Endocrine disorder, unspecified (principal)
CPT/HCPCS: 36415; 81050; 82530; 82565; 82575

== ENCOUNTER 2020-10-06 12:14 | Outpatient (RCR) | payer BC, SELFPAY | END 2020-12-12 23:59 | LOC: IMMUN 12:14 | PROVIDERS: PCP Family Medicine; Visit Provider Family Medicine | DX: Z23 Encounter for immunization (principal) | CPT/HCPCS: 0001A; 0002A; 91300 ==

== ENCOUNTER → 2021-01-24 10:52 | Outpatient (CLI) | payer BC, SELFPAY ==
[2021-01-24 12:15] LABS: Free T3 2.5 pg/mL (2.18-3.98); T4 Free Direct 1.02 ng/dL (0.76-1.46); Thyroid Stim Hormone (TSH) 1.19 uIU/mL (0.358-3.74)
[2021-01-25 10:59] LABS: Thyroid Peroxidase AB < 8 IU/mL (0-34)
== END ==
PROVIDERS: PCP Family Medicine; Referring Provider Internal Medicine Endocrinology, Diabetes & Metabolism; Visit Provider Internal Medicine Endocrinology, Diabetes & Metabolism
DX: R53.83 Other fatigue (principal)
CPT/HCPCS: 36415; 84439; 84443; 84481; 86376

== ENCOUNTER 2023-04-08 13:00 | Outpatient (RCR) | payer BC, SELFPAY ==
--- NOTE | 2023-03-26 13:35 | HP.PTEVAL_ITS ---
Patient's Visit Information Visit Information Visit Information: ARNALDO CHONG is a 37 year old F referred to Physical Therapy by Dr. Nelly Mancini MD with a diagnosis of R knee pain/patellar tracking. Date of Evaluation: 03/26/23 Physical Therapist: LAURA Weldon Visit Plan Frequency: 1x/Week Duration: 6 Weeks Plan: 1X/ week for 4 weeks for HEP involving proper form for all exercises for R hip, knee and core strength. HEP: bridges with blue band, Supine clam shells, SLR, Squats to chair with equal weightbearing on each side Subjective Subjective: She started back into working out and started with low impact. She woke up Friday with pain in her R knee. She iced and Alieve and did not really help. Rest helped the most. Pain with bending past 90 degrees. Her knee is still achy. She never injured it. It did hurt to go up and down the steps. She did not feel she twisted it or anything. She was doing walking, lunges, squats, hops, yoga. She did not notice any swelling. The pain felt under the knee cap towards the medial side. Pain R knee pain: Pain Intensity (Out of 10): 0 Pain Intensity Range: 8 Comment: on Friday Objective Objective: Gait: walks with slight increase stance time on the R LE LE MMT: R hip flex 12.9 and L hip flex 11.5 R knee ext 14.2 and L 18.8 R knee flex 8.1 and L 10.8 R hip abd 10.8 and L 11.6 R hip ext 12.9 and L 13.2 Full bridge ROM SLB X 20 sec B Standing heel and toe raises: Pt is able to heel and toe raise OHS mechanics: Pt likes to put all her weight on her R LE with squat. Had pt squat in front of a mirror and she could not believe that she was doing that. We worked on correcting her weight shift with a squat in the mirror and she was able to correct it. It did feel weird putting more weight on her L LE as she was not used to doing that Steps: Pt likes to drive more weight through her R LE when ascending the stairs compared to her L Sitting posture: sits with her R leg out in front of the other leg Balance/Special Test Scores Lower Extremity Functional Score: 68 Goals Goal 1:: I HEP Goal Time Frame: 6-8 Weeks Goal 2:: Be able to return to exercising with no pain and proper form Goal Time Frame: 6-8 Weeks Goal 3:: Be able to do a proper squat with good squat mechanics Goal Time Frame: 6-8 Weeks Goal 4:: Be able to go up and down the stairs recip with equal WB through each LE Rehabilitation Potential Rehabilitation Potential: Good Anticipated Interventions Patient/Client Instruction: Educate patient on: Condition and Plan of Care For the Purpose of:: To decrease pain, To decrease swelling/inflammation, To increase ROM, To improve nutrient delivery to tissue, To improve muscle performance and motor function, To improve ability to perform ADL's, To increase tolerance to activity/condition/position, To improve performance and independence with ADL's, To improve gait and locomotor functions, To improve health of tissue and To increase flexibility/ROM Therapeutic Exercise to Include: Strength training, Gait and locomotor training and Active ROM For the Purpose of:: To decrease pain, To decrease swelling/inflammation, To increase ROM, To improve nutrient delivery to tissue, To improve muscle performance and motor function, To improve ability to perform ADL's, To increase tolerance to activity/condition/position, To improve performance and independence with ADL's, To improve ability of physical actions for home/community/work/leisure, To improve gait and locomotor functions and To improve health of tissue Functional Training to Include: Gait training For the Purpose of:: To improve gait and locomotor functions Text: Thank you for the opportunity to evaluate your patient. For Medicare and Medicare HMO plans, please review the plan of care and approve it. It will need to be FAXED BACK to us at [phone] for Medicare purposes. For Medicare only, by signing this I certify the plan of care. Please let me know if there are questions or concerns regarding this plan of care. Physician Dimple de guzman: Date:
--- NOTE | 2023-04-08 13:28 | HP.PTDCSUM ---
Discharge Summary D/C summary: It has been my pleasure to treat ARNALDO CHONG referred by Dr. Nelly Mancini MD, with the diagnosis of R knee pain/patellar tracking for a total of 3 visit(s). Discharge Date: Please see the following information for a summary of their discharge status. Subjective Subjective: Pt reports that she had pain once last week (working in flower beds and mowing). She has no problems going up and down the stairs and driving the car. Pt does catch herself now leaning with wall squats and regular squats. Pain R knee pain: Pain Intensity (Out of 10): 0 Overall Improvement % Improvement: 95 Objective Objective/Function: Pt is able to do x 5 [place] squats with good form and knee position. Pt was able to go up and down the steps recip with equal stance on B LE 6 inch eccentric step downs x 5 on each side (R side she had to really concentrate to not go into valgus) but much improved Issued purple band for home Goals Goal 1:: I HEP Goal Progress: Goal Met Goal 2:: Be able to return to exercising with no pain and proper form Goal Progress: Goal Met Goal 3:: Be able to do a proper squat with good squat mechanics Goal Progress: Goal Met Goal 4:: Be able to go up and down the stairs recip with equal WB through each LE Goal Progress: Goal Met Plan Plan: 1X/ week for 4 weeks for HEP involving proper form for all exercises for R hip, knee and core strength. HEP: bridges with blue band, Supine clam shells, SLR, Squats to chair with equal weightbearing on each side D/C Information d/c sentence: If there are questions or concerns regarding this patient's physical therapy, please feel free to call me at [phone]. Thank you for the referral of this patient. Sincerely, Janet Silva, MPT Balance/Gait/Functional tests Balance/Special Test Scores Lower Extremity Functional Score: 80 Improvement % Improvement: 95
== END 2023-04-08 19:00 | disposition home or self-care (01) ==
LOC: PT 13:00
PROVIDERS: PCP Family Medicine; Referring Provider Family Medicine; Visit Provider Family Medicine
DX: M22.2X1 Patellofemoral disorders, right knee (principal)
CPT/HCPCS: 97110; 97161; 97530

== ENCOUNTER → 2024-02-18 | Outpatient (CLI) | payer BC, SELFPAY ==
[2024-02-18 13:30] LABS: Potassium 4.1 mmol/L (3.5-5.1)
== END | disposition home or self-care (01) ==
LOC: LAB 12:09
PROVIDERS: PCP Family Medicine; Referring Provider Dermatology; Visit Provider Dermatology
DX: L70.0 Acne vulgaris (principal); L71.8 Other rosacea
CPT/HCPCS: 36415; 84132

== ENCOUNTER → 2024-02-19 | Outpatient (CLI) | payer BC, SELFPAY ==
[2024-02-19 18:07] LABS: Absolute Lymphocyte Count 2.15 X10^3/uL (0.83-4.51); Absolute Neutrophil Count 5.4 X10^3/uL (2.0-7.7); Basophil# 0.05 X10^3/uL; Basophil% 0.6 % (0-1); Eosinophil# 0.08 X10^3/uL; Erythrocyte Sedimentation Rate 15 mm/hr (0-30); Hematocrit 43.4 % (37-47); Hemoglobin 14.6 g/dL (12.0-15.0); Lymphocyte # 2.15 X10^3/ul (0.83-4.51); Lymphocyte % 25.5 % (19-41); Mean Corp Hgb Conc 33.6 g/dL (32-36); Mean Corpuscular Hgb 29.9 pg (27.0-32.0); Mean Corpuscular Volume 88.8 fL (81-99); Mean Platelet Vol. 9.6 fl (6.2-12.0); Monocyte% 8.3 % (0-10); NRBC Flagged by Analyzer 0 % (0-5); Neutrophil # 5.42 X10^3/uL (2.7-7.7); Neutrophil % 64.4 % (47-70); Platelet Count 395 K/mm3 (150-450); RBC Distribution Width CV 11.8 % (11.6-14.6); RBC Distribution Width SD 37.7 fl (35.1-43.9); Red Blood Count 4.89 M/mm3 (4.2-5.4); White Blood Count 8.4 K/mm3 (4.4-11.0)
[2024-02-19 18:44] LABS: AST(SGOT) 19 U/L (15-37); Alanine Aminotransfer ALT/SGPT 15 U/L (13-56); Albumin, Serum 4.3 g/dL (3.2-5.0); Alkaline Phosphatase 76 U/L (45-117); Anion Gap 8 (5-15); BUN 19 mg/dL (7-18); BUN/Creat Ratio 20.7 RATIO (10-20); CRP < 2.90 mg/L (0.0-3.0); Calcium,Total 10.3 mg/dL (8.5-10.1); Chloride 99 mmol/L (98-107); Creatinine, Serum 0.92 mg/dL (0.55-1.02); EST Glomerular Filtration Rate 73 mL/min (>60); Est Glom Filt Rate - Afr Amer 89 mL/min (>60); Globulin 4.4 g/dL (2.2-4.2); Glucose 98 mg/dL (74-106); Protein, Total 8.7 g/dL (6.4-8.2); Sodium Level 132 mmol/L (136-145); T4 Free Direct 1.24 ng/dL (0.76-1.46)
== END | disposition home or self-care (01) ==
PROVIDERS: PCP Family Medicine; Referring Provider Family Medicine; Visit Provider Family Medicine
DX: R19.7 Diarrhea, unspecified (principal); R10.9 Unspecified abdominal pain; R79.89 Other specified abnormal findings of blood chemistry
CPT/HCPCS: 36415; 80053; 84439; 84443; 84481; 85025; 85652; 86140

== ENCOUNTER → 2024-02-25 | Outpatient (CLI) | payer BC, SELFPAY ==
[2024-02-25 10:18] LABS: Absolute Lymphocyte Count 1.86 X10^3/uL (0.83-4.51); Absolute Neutrophil Count 5.9 X10^3/uL (2.0-7.7); Basophil# 0.05 X10^3/uL; Basophil% 0.6 % (0-1); Eosinophil# 0.15 X10^3/uL; Eosinophils% 1.7 % (0-5); Hematocrit 40.9 % (37-47); Hemoglobin 13.9 g/dL (12.0-15.0); Lymphocyte # 1.86 X10^3/ul (0.83-4.51); Lymphocyte % 21.6 % (19-41); Mean Corpuscular Hgb 30.4 pg (27.0-32.0); Mean Corpuscular Volume 89.5 fL (81-99); Mean Platelet Vol. 9.7 fl (6.2-12.0); Monocyte# 0.67 X10^3/uL; Monocyte% 7.8 % (0-10); NRBC Flagged by Analyzer 0 % (0-5); Neutrophil # 5.86 X10^3/uL (2.7-7.7); Neutrophil % 68.1 % (47-70); Platelet Count 365 K/mm3 (150-450); RBC Distribution Width CV 11.9 % (11.6-14.6); RBC Distribution Width SD 38.1 fl (35.1-43.9); Red Blood Count 4.57 M/mm3 (4.2-5.4); White Blood Count 8.6 K/mm3 (4.4-11.0)
[2024-02-25 10:48] LABS: AST(SGOT) 13 U/L (15-37); Alanine Aminotransfer ALT/SGPT 16 U/L (13-56); Alkaline Phosphatase 73 U/L (45-117); Anion Gap 5 (5-15); BUN 12 mg/dL (7-18); BUN/Creat Ratio 14.8 RATIO (10-20); Bilirubin, Direct 0.17 mg/dL (0.00-0.30); Calcium,Total 9.7 mg/dL (8.5-10.1); Chloride 103 mmol/L (98-107); Creatinine, Serum 0.81 mg/dL (0.55-1.02); EST Glomerular Filtration Rate 84 mL/min (>60); Est Glom Filt Rate - Afr Amer 102 mL/min (>60); Glucose 100 mg/dL (74-106); Potassium 4.3 mmol/L (3.5-5.1); Sodium Level 136 mmol/L (136-145)
== END | disposition home or self-care (01) ==
LOC: MTLAB 08:31
PROVIDERS: PCP Family Medicine; Referring Provider Family Medicine; Visit Provider Family Medicine
DX: E87.1 Hypo-osmolality and hyponatremia (principal); E80.6 Other disorders of bilirubin metabolism; R11.0 Nausea
CPT/HCPCS: 36415; 80048; 80076; 85025

== ENCOUNTER → 2024-09-10 | Outpatient (CLI) | payer BC, SELFPAY ==
--- NOTE | 2024-09-10 09:57 | RAD_ITS ---
PROCEDURE: FOOT MIN 3 VIEWS REASON FOR EXAM: Pain in right foot. Rule out fracture. TECHNIQUE: 3 view right foot. COMPARISON: None. RAD/Foot min 3 Views IMPRESSION: Mild degenerative changes are seen of the 1st metatarsophalangeal joint, withou t significant joint space narrowing. Soft tissue bunion formation is noted. On the lateral view, normal contour of the Achilles tendon is seen. No ankle j oint effusion is noted. Satisfactory osseous alignment is seen. No fracture is noted. If clinical concern persists, short-term follow-up imaging may be obtained to r ule out a currently occult fracture. Reading Location: [id number]
== END | disposition home or self-care (01) ==
LOC: MTRAD 09:55
PROVIDERS: PCP Family Medicine; Referring Provider Nurse Practitioner Family; Visit Provider Nurse Practitioner Family
DX: M79.671 Pain in right foot (principal)
CPT/HCPCS: 73630

== ENCOUNTER → 2024-10-13 | Outpatient (CLI) | payer BC, SELFPAY ==
--- NOTE | 2024-10-13 13:39 | RAD_ITS ---
PROCEDURE: CHEST PA AND LATERAL 10/13/2024 REASON FOR EXAM: CHEST PAIN TECHNIQUE: Frontal and lateral views of the chest. COMPARISON: None. FINDINGS: Hardware: None. Heart: The heart size is normal. Mediastinum: The mediastinal contour is unremarkable. Lungs: No focal consolidation, pleural effusion or pneumothorax. Bones: The bones are unremarkable. RAD/Chest PA and Lateral IMPRESSION: NEGATIVE CHEST Reading Location: [id number]
[2024-10-13 15:41] LABS: Absolute Lymphocyte Count 1.63 X10^3/uL (0.83-4.51); Absolute Neutrophil Count 5.3 X10^3/uL (2.0-7.7); Basophil# 0.06 X10^3/uL; Basophil% 0.8 % (0-1); Eosinophil# 0.09 X10^3/uL; Eosinophils% 1.2 % (0-5); Hematocrit 39.9 % (37-47); Hemoglobin 13.2 g/dL (12.0-15.0); Lymphocyte # 1.63 X10^3/ul (0.83-4.51); Lymphocyte % 21.6 % (19-41); Mean Corp Hgb Conc 33.1 g/dL (32-36); Mean Corpuscular Hgb 30.1 pg (27.0-32.0); Mean Corpuscular Volume 91.1 fL (81-99); Mean Platelet Vol. 9.4 fl (6.2-12.0); Monocyte# 0.42 X10^3/uL; Monocyte% 5.6 % (0-10); NRBC Flagged by Analyzer 0 % (0-5); Neutrophil # 5.32 X10^3/uL (2.7-7.7); Neutrophil % 70.5 % (47-70); Platelet Count 398 K/mm3 (150-450); RBC Distribution Width CV 12.4 % (11.6-14.6); RBC Distribution Width SD 41.2 fl (35.1-43.9); Red Blood Count 4.38 M/mm3 (4.2-5.4); White Blood Count 7.5 K/mm3 (4.4-11.0)
[2024-10-13 16:04] LABS: ALB/GLOB Ratio 1.5 RATIO (0.9-2.4); AST(SGOT) 20 U/L (<=31); Alanine Aminotransfer ALT/SGPT 16 U/L (<=34); Albumin, Serum 4.7 g/dL (3.5-5.0); Alkaline Phosphatase 64 U/L (35-104); Anion Gap 11 (5-15); BUN 9 mg/dL (4-19); Calcium,Total 10.1 mg/dL (7.6-11.0); Chloride 98 mmol/L (98-108); Creatinine, Serum 0.77 mg/dL (0.70-1.20); EST Glomerular Filtration Rate 102 (>60); Globulin 3.3 g/dL (2.2-4.2); Glucose 100 mg/dL (70-99); Potassium 3.6 mmol/L (3.3-5.1); Sodium Level 135 mmol/L (133-145); Total Bilirubin 1.02 mg/dL (0.00-1.30)
[2024-10-13 16:05] LABS: Pro- Brain NATRIURETIC PEPTIDE < 36 pg/mL (<=450)
== END | disposition home or self-care (01) ==
PROVIDERS: PCP Family Medicine; Referring Provider Nurse Practitioner Family; Visit Provider Nurse Practitioner Family
DX: R07.89 Other chest pain (principal)
CPT/HCPCS: 36415; 71046; 80053; 83880; 85025

== ENCOUNTER 2024-10-15 05:44 | Inpatient (IN) | payer BC, SELFPAY ==
[2024-10-15] VITALS (14 sets, daily range): BP systolic 96–126; BP diastolic 64–106; PULSE 71–87; RESP 16–20; TEMP 36.2–36.9; O2SAT 97–100; BMI 24.5
--- NOTE | 2024-10-15 06:04 | US_ITS ---
PROCEDURE: ABDOMEN LIMITED 10/15/2024 REASON FOR EXAM: RUQ PAIN COMPARISON: None. FINDINGS: Liver: Mildly heterogeneous but normal in size. Gallbladder: The gallbladder contains stones and sludge. There is pericholecystic fluid. Abnormal wall thickening is present. Sonographic Quiles sign was negative. Common bile duct: Within normal limits. . Pancreas: Visualized portions appear within normal limits. Other: The right kidney measures up to 11.6 cm in length. US/Abdomen Limited IMPRESSION: Several stones and sludge seen within the gallbladder. The gallbladder demonst rates abnormal wall thickening. Although sonographic Quiles sign was negative, these findings are suggestive of acute ch olecystitis, recommend further evaluation with cross-sectional imaging versus nuclear medicine biliary excretion scan. Reading Location: [id number]
--- NOTE | 2024-10-15 06:06 | EX.ED.DYSGE1 ---
HPI History of Present Illness Chief Complaint: Abd Pain Informant: patient Narrative Narrative: Patient is a 39-year-old female with no significant past medical history. She states over the past month she has had intermittent right sided abdominal pain. She states that there has been no trauma or excessive activity. She denies any hematuria or dysuria. She states that she does not have a known history of gastritis or ulcers. She reports that in the past week the pain has been worsening and she has noticed increased symptoms especially after eating. She states that last night after eating a pasta dish she developed right upper quadrant abdominal pain with nausea. She states the pain was more intense than it has been over the past month. Therefore with the prolonged history of symptoms as well as the increasing nature of pain she presents for evaluation. PFSH PFSH Medical History no medical history Home Medications ?Medication ?Instructions ?Recorded ?Last Taken ?Type Vitamins 1 tab PO DAILY 11/19/17 02/10/18 20:00 History naproxen 250 mg tablet 250 - 500 mg (1 - 2 x 250 mg) PO 02/11/18 Unknown Rx Q8H PRN PRN Mild Pain (-3) #30 tabs pantoprazole 40 mg tablet,delayed 40 mg PO DAILY 10/15/24 Unknown History release spironolactone 100 mg tablet 100 mg PO DAILY 10/15/24 Unknown History Allergy/AdvReac Type Severity Reaction Status Date / Time No Known Allergies Allergy Verified 10/15/24 05:45 Family History (Updated 10/15/24 @ 05:46 by Hari Smith) Father Colon cancer Surgical History no surgical history Social History Smoking Status: Never smoker ROS ROS ED Constitutional Constitutional ED: Denies chills or fever(s) ENT ENT ED: Denies rhinorrhea or sore throat Cardiovascular Cardiovascular: Denies chest pain, palpitations or racing heartbeat Respiratory/Chest Respiratory/Chest: Denies cough or dyspnea Gastrointestinal Gastrointestinal: Reports abdominal pain and nausea; Denies constipation, diarrhea or vomiting Genitourinary Genitourinary ED: Denies dysuria or hematuria Musculoskeletal Musculoskeletal: Reports back pain Integumentary Denies rash Neurologic Neurologic: Denies headache(s) Hematologic/Lymphatic Hematologic/Lymphatic: Denies easy bleeding or easy bruising EXAM Physical Exam Const Vital Signs: 10/15/24 05:45 Temperature 98.1 F Temperature Source Oral Pulse Rate 71 Respiratory Rate 18 Blood Pressure 120/98 H Blood Pressure Mean 105 Pulse Ox 100 Oxygen Delivery Method Room Air Positive well nourished and well developed General Appearance ED: well developed; Negative for pallor HEENT HEENT Narrative: Normocephalic atraumatic Eyes PERRL and EOMs intact bilaterally General Eye ED: Negative for scleral icterus Neck supple Resp normal respiratory effort and clear to auscultation bilaterally Resp Narrative: Lungs are clear to auscultation throughout No nasal flaring retractions tachypnea or accessory muscle use Cardio regular rate and regular rhythm Rate: other Other Details: Heart is regular rate and rhythm without murmurs rubs or gallops Radial and carotid pulses are equal and symmetric GI non-distended GI Narrative: Abdomen is soft and nondistended with normal active bowel sounds. Patient has pain with palpation in the right upper quadrant with positive Quiles sign. No pulsatile mass or fluid wave. Auscultation: normoactive bowel sounds Palpation: soft Back/Spine no CVA tenderness Extremity normal to inspection Extremity Narrative: No asymmetric edema no pitting edema negative Homans' sign bilaterally Neuro oriented x3, CN's II-XII intact bilaterally and no sensory deficits noted Sensorium / Orientation: alert Motor Exam: strength 5/5 throughout Psych mental status grossly normal Skin no rashes or lesions noted and no wounds General Skin Exam: Negative for jaundice or pallor MDM MDM MDM Narrative Medical decision making narrative: Patient arrived to the ER with stable vitals but complaining of intermittent right upper quadrant pain for the past 4 weeks that has worsened in the last few days. Differential diagnosis is for biliary colic versus acute cholecystitis versus pancreatitis versus gastritis. Basic blood work was obtained which revealed no clinically significant finding. A ultrasound of the gallbladder was obtained based on history and exam indicating this is most likely the cause of her symptoms. At this time the patient's official read of the ultrasound is still pending. Based on her stable vitals and normal labs I feel that if ultrasound is read as normal or with gallstones only the patient should be safe for discharge with outpatient surgical follow-up. However if he does show changes concerning for developing acute cholecystitis then patient will most likely need admitted to the hospital. As the imaging is still pending patient will be signed out to the day physician Dr. Cabrera History & Record Review Discussion w/independent historian: Patient Lab Data Attestation: I reviewed the patient's lab results. Labs: Laboratory Results - last 24 hr 10/15/24 05:49 WBC 10.2 RBC 4.56 Hgb 14.2 Hct 41.6 MCV 91.2 MCH 31.1 MCHC 34.1 RDW Std Deviation 40.9 RDW Coeff of Crystal 12.3 Plt Count 389 MPV 9.3 Immature Gran % (Auto) 0.300 Neut % (Auto) 73.4 H Lymph % (Auto) 14.2 L Vigo % (Auto) 7.9 Eos % (Auto) 3.7 Baso % (Auto) 0.5 Absolute Neuts (auto) 7.5 Absolute Lymphs (auto) 1.45 Nucleated RBC % 0 Sodium 138 Potassium 3.9 Chloride 102 Carbon Dioxide 24.2 Anion Gap 12 BUN 13 Creatinine 0.75 Estim Creat Clear Calc 84.96 Est GFR (MDRD) Non-Af 105 BUN/Creatinine Ratio 17.0 Glucose 112 H Calcium 9.7 Total Bilirubin 0.81 Direct Bilirubin 0.29 AST 20 ALT 13 Alkaline Phosphatase 74 Total Protein 8.0 Albumin 4.7 Globulin 3.4 Lipase 47 Serum , Qual NEGATIVE Discharge Plan Triage Chief Complaint: Abd Pain ED Provider: Lokesh Escobedo Dx/Rx/DC Orders Clinical Impression: Cholelithiasis Prescriptions: No Action Vitamins 1 tab PO DAILY naproxen 250 MG tablet 250 - 500 mg PO Q8H PRN PRN (Reason: Mild Pain (1-3/10)) Qty: 30 0RF spironolactone 100 mg tablet 100 mg PO DAILY pantoprazole 40 mg tablet,delayed release (DR/EC) 40 mg PO DAILY Primary Care Provider: Tamara Tobias Referrals: Tamara Tobias DO [Primary Care Provider] - Print Language: Vietnamese
[2024-10-15] MEDS: 0.9% Normal Saline (1000mL) 1,000 ML 999 ML IV (06:07)
[2024-10-15] MEDS: Pantoprazole Sodium 40 MG in 0.9% Normal Saline (100mL MB+) 100 ML 330 MG IV (06:12)
[2024-10-15 06:14] LABS: Absolute Lymphocyte Count 1.45 X10^3/uL (0.83-4.51); Absolute Neutrophil Count 7.5 X10^3/uL (2.0-7.7); Basophil# 0.05 X10^3/uL; Basophil% 0.5 % (0-1); Eosinophil# 0.38 X10^3/uL; Eosinophils% 3.7 % (0-5); Hematocrit 41.6 % (37-47); Hemoglobin 14.2 g/dL (12.0-15.0); Lymphocyte # 1.45 X10^3/ul (0.83-4.51); Lymphocyte % 14.2 % (19-41); Mean Corp Hgb Conc 34.1 g/dL (32-36); Mean Corpuscular Hgb 31.1 pg (27.0-32.0); Mean Corpuscular Volume 91.2 fL (81-99); Mean Platelet Vol. 9.3 fl (6.2-12.0); Monocyte# 0.81 X10^3/uL; Monocyte% 7.9 % (0-10); NRBC Flagged by Analyzer 0 % (0-5); Neutrophil # 7.47 X10^3/uL (2.7-7.7); Neutrophil % 73.4 % (47-70); Platelet Count 389 K/mm3 (150-450); RBC Distribution Width CV 12.3 % (11.6-14.6); RBC Distribution Width SD 40.9 fl (35.1-43.9); Red Blood Count 4.56 M/mm3 (4.2-5.4); White Blood Count 10.2 K/mm3 (4.4-11.0)
[2024-10-15 06:26] LABS: Internal QC Validated? YES +Cl - CLEAR BKGD; Pregnancy, Serum, hCG Quali. NEGATIVE Negative
[2024-10-15 06:37] LABS: AST(SGOT) 20 U/L (<=31); Alanine Aminotransfer ALT/SGPT 13 U/L (<=34); Albumin, Serum 4.7 g/dL (3.5-5.0); Alkaline Phosphatase 74 U/L (35-104); Anion Gap 12 (5-15); BUN 13 mg/dL (4-19); Bilirubin, Direct 0.29 mg/dL (0.00-0.30); Calcium,Total 9.7 mg/dL (7.6-11.0); Carbon Dioxide 24.2 mmol/L (21.0-32.0); Chloride 102 mmol/L (98-108); Creatinine, Serum 0.75 mg/dL (0.70-1.20); EST Glomerular Filtration Rate 105 (>60); Estimated Creatinine Clearance 84.96 ml/min (50-250); Globulin 3.4 g/dL (2.2-4.2); Glucose 112 mg/dL (70-99); Lipase 47 U/L (13-75); Potassium 3.9 mmol/L (3.3-5.1); Sodium Level 138 mmol/L (133-145); Total Bilirubin 0.81 mg/dL (0.00-1.30)
[2024-10-15] MEDS: Piperacil/Tazobactam 3.375 GM in 0.9% Normal Saline (50mL MB+) 50 ML IV (08:44)
--- NOTE | 2024-10-15 11:12 | HP.PCM_ITS ---
HPI - General General Date of Admission: 10/15/24 Chief Complaint: Right upper quadrant discomfort HPI Narrative ARNALDO CHONG, is a 39 F who presents to [facility] with complaints of abdominal pain that began just last evening in her right upper quadrant. However, she notes for the last month she is dealt with back pain in the evenings. She states the onset of this pain typically ranges from 1:00 to 5:00 in the afternoon and then extends to approximately 10 PM in the evening. Pain has been associate with nausea but no vomiting. Further she denies any associated fevers or chills. She also reports that only this week has the pain seem to be temporally related to eating. She noticed the onset of symptoms within approximately 30 minutes of eating. She reports that she saw her PCP earlier this week and underwent blood work, chest x-ray, and EKG?all of which were within normal limits. Patient's ER workup included biochemical assessment with laboratories as well as right upper quadrant ultrasound. The former showed normal metabolic panel but CBC showed a mild left shift. Right upper quadrant ultrasound was more notable with findings of pericholecystic fluid and some gallbladder wall thickening which was measured at 7.1 mm. Despite a negative sonographic Quiles sign radiology did conclude these findings were consistent with acute cholecystitis. Patient has minimal past medical history and states she only take spironolactone for a diagnosis of acne. She has no past surgical history. 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 She reports an intentional weight loss approximately 1 year ago of 20 pounds. Further back she reports that she was told there may be some gallbladder problems with her last in 2018 but an alternative cause was ultimately found in her right upper quadrant ultrasound at that time was unremarkable. [facility] Medical History no medical history Home Medications ?Medication ?Instructions ?Recorded ?Last Taken ?Type spironolactone 100 mg tablet 100 mg PO DAILY 10/15/24 Unknown History Allergy/AdvReac Type Severity Reaction Status Date / Time No Known Allergies Allergy Verified 10/15/24 11:14 Family History Father Colon cancer Surgical History no surgical history Social History Smoking Status: Never smoker Vital Signs Vital Signs Vital Signs: 10/15/24 05:45 10/15/24 08:01 10/15/24 08:45 Temperature 98.1 F Temperature Source Oral Pulse Rate 71 71 Respiratory Rate 18 18 Blood Pressure 120/98 H 109/78 126/106 H Blood Pressure Mean 105 88 112 Pulse Ox 100 97 Oxygen Delivery Method Room Air 10/15/24 10:57 Temperature 98.1 F Temperature Source Pulse Rate 71 Respiratory Rate 18 Blood Pressure 126/106 H Blood Pressure Mean 112 Pulse Ox 97 Oxygen Delivery Method Weight Weight: 138 lb 7.205 oz Body Mass Index (BMI) 24.5 Physical Exam Const alert, oriented x3, no apparent distress and well nourished Resp normal respiratory effort GI GI Narrative: No scars, nondistended, soft, markedly tender to palpation in right upper quadrant, however, technically negative Quiles sign Results Lab / Micro Data 10/15/24 05:49 10/15/24 05:49 Labs: Laboratory Results - last 24 hr 10/15/24 05:49: WBC 10.2, RBC 4.56, Hgb 14.2, Hct 41.6, MCV 91.2, MCH 31.1, MCHC 34.1, RDW Std Deviation 40.9, RDW Coeff of Crystal 12.3, Plt Count 389, MPV 9.3, Immature Gran % (Auto) 0.300, Neut % (Auto) 73.4 H, Lymph % (Auto) 14.2 L, Dickens % (Auto) 7.9, Eos % (Auto) 3.7, Baso % (Auto) 0.5, Absolute Neuts (auto) 7.5, Absolute Lymphs (auto) 1.45, Nucleated RBC % 0, Sodium 138, Potassium 3.9, Chloride 102, Carbon Dioxide 24.2, Anion Gap 12, BUN 13, Creatinine 0.75, Estim Creat Clear Calc 84.96, Est GFR (MDRD) Non-Af 105, BUN/Creatinine Ratio 17.0, G lucose 112 H, Calcium 9.7, Total Bilirubin 0.81, Direct Bilirubin 0.29, AST 20, ALT 13, Alkaline Phosphatase 74, Total Protein 8.0, Albumin 4.7, Globulin 3.4, Lipase 47, Serum , Qual NEGATIVE Imaging Radiology Impression Abdomen Ultrasound 10/15/24 06:04 IMPRESSION: Several stones and sludge seen within the gallbladder. The gallbladder demonstrates abnormal wall thickening. Although sonographic Quiles sign was negative, these findings are suggestive of acute cholecystitis, recommend further evaluation with cross-sectional imaging versus nuclear medicine biliary excretion scan. Reading Location: [id number] Assessment & Plan Assessment/Plan (1) Cholecystitis, acute: PLAN: Patient 39-year-old female who presents with development of acute onset right upper quadrant abdominal pain and associated nausea over the last 24 hours. Her left shift and ultrasound findings make this further consistent with diagnosis of acute cholecystitis. Yet I shared with patient that her comments about back pain, indigestion, and bloating are less typical of this diagnosis and may be attributable to a different entity. Still, given what I observe through her exam and her emergency room workup I recommend pursuing laparoscopic cholecystectomy with intraoperative cholangiography. Procedure was described including postprocedural expectations. Consents have been signed. Will now proceed to the operating room for procedure. Postoperatively patient will be returned to the hospital [facility] but we have not ruled out discharge following the procedure pending her recovery after surgery/anesthesia. Shane Culver MD General Surgery Endocrine Surgery Pager: [facility] [address] [place] [address], [address] [place] [address] Office: [phone] Charges/Coding Visit Charges Inpatient E&M: 41272 Init Hosp L2
[2024-10-15] MEDS: 0.9% Normal Saline (1000mL) 1,000 ML 125 ML IV (11:30)
--- NOTE | 2024-10-15 11:32 | PRE.ANES_ITS ---
ASA Classification* ASA Classification ASA Classification: 2 Assessment & Plan Anesthesia* Anesthesia Assessment Anesthesia Assessment: Discussed sedation and/or anesthesia options, risks, benefits, and alternatives with patient/parents/legal guardian/POA. Questions invited. The patient/parents/legal guardian/POA seems to understand and agrees to proceed with anesthesia plan. Reviewed the physical assessment, medical history, allergy history and patient home medications list prior to surgery/procedure/anesthetic and documented any changes. Performed airway and anesthesia risk assessments. Anesthesia Type Anesthesia Type: General Anesthesia Focused Assessment* Temperature: 97.2 F Pulse Rate: 80 Blood Pressure: 112/80 Respiratory Rate: 16 Pulse Ox: 100 Airway Assessment Mouth opens: >3 cm Mallampati Score: II Focused Labs Anesthesia Preop lab: CBC WBC 10.2 K/mm3 (4.4-11.0) 10/15/24 05:49 10/15/24 RBC 4.56 M/mm3 (4.2-5.4) 10/15/24 05:49 10/15/24 Hgb 14.2 g/dL (12.0-15.0) 10/15/24 05:49 10/15/24 Hct 41.6 % (37-47) 10/15/24 05:49 10/15/24 Plt Count 389 K/mm3 (150-450) 10/15/24 05:49 10/15/24 CHEMISTRY Potassium 3.9 mmol/L (3.3-5.1) 10/15/24 05:49 10/15/24 Sodium 138 mmol/L (133-145) 10/15/24 05:49 10/15/24 BUN 13 mg/dL (4-19) 10/15/24 05:49 10/15/24 Creatinine 0.75 mg/dL (0.70-1.20) 10/15/24 05:49 10/15/24 Glucose 112 mg/dL (70-99) H 10/15/24 05:49 10/15/24 TSH 1.790 uIU/mL (0.358-3.740) 02/19/24 16:19 02/04 11/27 COAG PT 14.2 SECONDS (11.7-14.9) 11/19/17 17:30 Pre-Assessment Diagnosis/Proposed Procedure Planned Operative Procedure(s): Laparoscopic cholecystectomy. 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 When Was Last Pacemaker Check QUESTION #4 FULL TEXT: You/Your Family Experience fever (hyperthermia) with Anesthesia Last Oral Intake Last Oral intake: Last Oral Intake NPO since 17:30 10/15/24 11:16 Meds taken in AM with sips of No 10/15/24 11:16 water? 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 Has anyone observed you stop breathing during sleep? STOP Results QUESTION #5 FULL TEXT : Do you snore loudly (louder than talking or can be heard through closed doors)? 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 Specify any problems Hx of Preganancy in last 3 Months Nurse Filling Out Transfusion & Questions: Date: Time: Patient unable to answer at this time (ie. 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: /Reproductive Hx- after school program teacher Hx Now Gestational Age (in weeks): EDC: Hx Hx Para Hx Section SAB No 10/15/24 05:45 Active Medications Active Medications: Current Medications Generic Name Dose Route Start Last Admin Trade Name Freq PRN Reason Stop Dose Admin Hydromorphone HCl 0.5 mg 10/15/24 11:10 Hydromorphone 0.5 Mg/0.5 Ml Syringe IV Q4H PRN PRN Pain Score 6-10 Sodium Chloride 1,000 mls @ 125 mls/hr 10/15/24 11:10 10/15/24 11:30 IV 125 mls/hr .Q8H CITLALY Administration Pantoprazole Sodium 40 mg/ 110 mls @ 330 mls/hr 10/16/24 10:00 Sodium Chloride IV Q24 CITLALY Ondansetron HCl 4 mg 10/15/24 11:10 Ondansetron 4 Mg/2 Ml Vial IV Q6H PRN PRN NAUSEA/VOMITING PFSH Medical History no medical history Home Medications ?Medication ?Instructions ?Recorded ?Last Taken ?Type spironolactone 100 mg tablet 100 mg PO DAILY 10/15/24 10/14/24 History Allergy/AdvReac Type Severity Reaction Status Date / Time No Known Allergies Allergy Verified 10/15/24 11:14 Family History Father Colon cancer Surgical History no surgical history Social History Smoking Status: Never smoker Review of Systems (Anesthesia) ROS Narrative System reviewed and no additional complaints, except as documented.
--- NOTE | 2024-10-15 11:36 | EKG12_ITS ---
Test Reason : PREOP Blood Pressure : */* mmHG Vent. Rate : 75 BPM Atrial Rate : 75 BPM P-R Int : 140 ms QRS Dur : 88 ms QT Int : 378 ms P-R-T Axes : 74 52 35 degrees QTcB Int : 422 ms Normal sinus rhythm Normal ECG When compared with ECG of 20-Nov-2017 21:03, No significant change was found Confirmed by Shane Kothari ([id number]), continuity editor KOFI RECIO ([id number]) on 10/18/2024 1:26:18 PM Referred By: Shane Culver Confirmed By: Shane Kothari
--- NOTE | 2024-10-15 12:30 | GALL_PTH ---
PATIENT: ARNALDO CHONG LOC: MS3 U#:[id number] AGE/SX: 39/F ROOM: AR315 RE10/15/[address]: Dr. Shane Culver MD : 1985 BED: 1 DIS: 10/16/2024 SPEC #: [id number] RECD: 10/18/24 08:37 STATUS: ABBY RYAN #: [id number] GILMER: 10/15/24 12:[address]: Shane Culver DEPT: SURGICAL PATHOLOGY RECD BY: Troy Lomeli ENTERED: 10/18/24 08:37 SP TYPE: TYSON KOVACS DR: Dr. Tamara Tobias, DO Tissues: A - Gallbladder, NOS Procedures: Surgery Specimen Level III HEADER OPERATION: Laparoscopic, cholecystectomy PRE-OP DIAGNOSIS: Cholecystitis, acute TISSUE SUBMITTED: A- Gallbladder and contents MICROSCOPIC DIAGNOSIS A. Gallbladder, cholecystitis, cholecystectomy: * Acute on chronic cholecystitis with cholelithiasis. MICROSCOPIC DESCRIPTION Slides are reviewed. GROSS DESCRIPTION A. Received in formalin in a container labeled with the patient's name, date of , and gallbladder and contents is an intact 10.5 x 3.3 x 3.0 cm cholecystectomy specimen. The clamped possible cystic duct margin is 0.6 cm in length by 0.3 cm in diameter (inked black). Adjacent to the margin is a 1.1 x 0.8 x 0.7 cm rubbery pericystic lymph node candidate. The serosa is tejada-pink with dense adhesions. The opposing roughened and cauterized hepatic bed is inked green. The specimen is opened to reveal an abundance of thick, pale yellow, possible bile admixed with multiple firm and irregular stones individually measuring up to 1.7 cm in greatest dimension. The mucosa is white-tejada and trabecular. The wall thickness ranges from 0.2 to 1.1 cm. Gas Reverser sections:A1. Cystic duct margin, en face with lymph node candidate and full-thickness sectionA2. Full-thickness sections gallbladder wall [facility] 10/15/2024 CPT:23822
[2024-10-15] MEDS: Bupiv/Epi 0.25% 30 ML Vial (15:26)
--- NOTE | 2024-10-15 15:31 | OP.PCM_ITS ---
Procedures Digestive 40xxx-49xxx: 41982 Laparoscopic cholecystectomy Operative Report (Standard) Operative Information Date of Procedure: 10/15/24 Pre-Operative Diagnosis: Acute cholecystitis Post-Operative Diagnosis: Same Surgery/Procedure Performed: Laparoscopic cholecystectomy with intraoperative cholangiography (aborted) sustainable design consultant: Yes Accounts Adjustable Clerk: Yeni Masters Tasks completed by staff assistant: Opening & closing and Other (laparoscopic camera operation) Additional care assistant?: Yes Additional Client Relationship Manager #2: Viet Horne Tasks completed by care assistant #2: Closing Type of Anesthesia: General/Supplemental RN Documented Start/Stop Times: Operation Date: 10/15/24 12:30 Case Time Into Pre-Op 10/15/24 11:10 Anesthesia Start 10/15/24 13:05 Into Room 10/15/24 13:05 Procedure Start 10/15/24 13:28 Procedure End 10/15/24 15:40 Anesthesia End 10/15/24 15:55 Out of Room 10/15/24 15:55 Into Recovery 10/15/24 15:57 Out of Recovery 10/15/24 16:35 Procedure Start Time: 13:28 Procedure Stop Time: 15:40 Select all DRAINS/GRAFTS/IMPLANTS that apply: None Estimated Blood Loss: 30 Specimen collected: Yes Description of specimen(s) removed: Gallbladder Description of surgery: After proper identification in the preoperative holding area the patient was brought to the operating room where she was positioned supine on the operating room table. Preoperatively SCDs were connected and antibiotics were administered (2 g Ancef was administered by anesthesia at my request given the duration and elapsed since patient's administered dose of IV Zosyn by emergency medicine). General anesthesia was then induced. Patient's abdomen was prepped and draped in usual sterile fashion. A formal timeout was conducted to confirm both patient and the procedure. Procedure was begun with a supraumbilical incision which was extended deeply down to the level of the fascia. The fascia was elevated and incised, as well as the peritoneum. A finger sweep was performed to ensure there were no underlying adhesions and a 12 mm balloon trocar was inserted. Pneumoperitoneum was established at 15 mmHg. Three additional trocars (all 5 mm) were placed in the epigastrium and in the right upper quadrant. Inspection of the peritoneum revealed no inadvertent injury to the viscera below. The gallbladder was visualized with evidence of acute inflammation as it appeared slightly discolored from edema and was taut with distention. Despite this distention, the gallbladder was able to be grasped and the fundus was elevated cephalad. Great care was taken to gently tease away thin adhesions between the gallbladder body and the now?pulled up C-loop of the duodenum. Then, using careful dissection the peritoneum was opened and the structures of the hepatocystic triangle were delineated. Initially the only anatomy that I could appreciate was a redundant/floppy infundibular segment that appeared to overlie the larger caliber duct more inferiorly. As I worked to place this infundibular structure on traction and also dissect in the inflammatory plane between it and the underlying duct I encountered the fact that the gallbladder appeared to have kinked over a diminutive cystic duct. Further challenging the dissection was a finding of numerous small caliber anastomotic vessels with a more dominant anterior and posterior cystic artery. Each of these vessels was clipped with either a Hem-o-shari clip or a titanium clip as they were encountered and were divided to maintain hemostasis as much as possible. Ultimately I was able to achieve a dissection where I was comfortable identifying the cystic duct, the common bile duct, and the common hepatic duct. Within the hepatocystic triangle there seem to be several coursing vessels that were difficult to access given the inflammatory change of the gallbladder and so I elected to try to begin my cholangiogram with an intent to clearly identify the cystic duct and provide more visualization of these other vessels. A Hem-o-shari clip was placed distally across the cystic duct and the duct was partially divided. Initially I visualized some cloudy fluid within this duct after controlling a small arterial feeding the wall of the duct with a burst of electrocautery. I then used a grasper to try to milk the duct from proximal to distal and still did not visualize any bile. The end of the grasper was placed within the duct to try to dislodge any obstructions, but none were found. Given the diminutive size of the duct I elected to use a reinforced metal tip cholangiocatheter that was introduced to the peritoneal cavity via a 14-gauge angiocatheter placed through the abdominal wall in the right upper quadrant under laparoscopic visualization. Despite repeated attempts with manipulating the catheter, attempts at slightly enlarging right ductotomy, and even changing the angle of my approach I was unable to advance the catheter. Since the duct certainly given appearance of potentially being obliterated prior to my arrival and the anatomy was otherwise apparent, I elected to abort this procedure. 2 Hem-o-shari clips were placed across the proximal cystic duct stump and the duct was fully divided. With this duct divided there was new mobility on the gallbladder and I was able to identify the main trunk of the cystic artery. The same process of ligation was used for the cystic artery on the surface of the gallbladder. The gallbladder was then removed from the gallbladder fossa with the use of electrocautery while applying upward traction. Selective electrocautery was used to obtain hemostasis in the gallbladder fossa. Prior to complete removal hemostasis was verified on the fossa. The gallbladder was placed in an Endo Catch bag for later removal from the peritoneum. Morison's pouch was irrigated and the effluent was suctioned free of the peritoneum. Hemostasis was again confirmed on the underside of the liver. The gallbladder was then extracted from the supraumbilical port site after having to sharply incise the fascial opening and the skin given the larger size of the specimen. Pneumoperitoneum was evacuated and the fascia of the supraumbilical site was closed with #1Vicryl in a [id number] fashion x 2. A total of 30 mL of anesthetic was injected at the port sites for postoperative pain control. The skin of each port site was then closed in subcuticular fashion using 4-0 Monocryl. Steri-Strips and bandages were applied as dressings. Patient tolerated the procedure well without any apparent complications. On emergence from their anesthetic the patient was taken to PACU for ongoing recovery. Surgical Findings: ? Markedly, acutely inflamed gallbladder that appeared taut with edema and an inflammatory rind ? Infundibular portion of the gallbladder and folded down over a markedly foreshortened cystic duct exposing only the common bile duct with numerous small vessels both anteriorly and posteriorly supplying the gallbladder ? Inability to cannulate the cystic duct with cholangiocatheter but upon div ision of the duct there was some cloudy fluid within the lumen and otherwise an appearance that it had been obliterated Complications Complications: No Admit VTE Documentation VTE Mechan Device Prophylaxis: SCD's
--- NOTE | 2024-10-15 15:59 | PCM.POST.ANE ---
Anesthesia: Postop Eval I Current Vital Signs Temperature: 98.5 F Pulse Rate: 82 Blood Pressure: 99/64 Respiratory Rate: 16 Pulse Ox: 100 Oxygen Delivery Method: Simple Mask Oxygen Flow Rate (L/min): 6 Assessment Airway patent: Yes Spontaneous unlabored respirations: Yes Mental status: Asleep nausea: No Vomiting: No Anesthesia Complication: No Fluid Hydration Crystalloid volume administer (ml): 1,500 Total IV fluid infused: 1,500 Progress Note Anesthesia document: Postop Eval 1 completed: Yes
[2024-10-15] MEDS: oxyCODONE 5 MG Tablet PO (19:58)
[2024-10-15] MEDS: Acetaminophen 500 MG Tablet PO (19:58)
[2024-10-15] MEDS: 0.9% Saline Lock 10 ML Syringe IV (19:59)
[2024-10-16 00:04] VITALS: BP 93/67; PULSE 74; RESP 16; TEMP 36.6; O2SAT 98
[2024-10-16 04:02] VITALS: BP 99/65; PULSE 79; RESP 16; TEMP 36.7; O2SAT 97
[2024-10-16] MEDS: Acetaminophen 500 MG Tablet PO ×2 (04:09→12:27)
[2024-10-16 07:22] LABS: Absolute Lymphocyte Count 0.63 X10^3/uL (0.83-4.51); Absolute Neutrophil Count 12.2 X10^3/uL (2.0-7.7); Basophil# 0.01 X10^3/uL; Basophil% 0.1 % (0-1); Hematocrit 33.7 % (37-47); Hemoglobin 11.4 g/dL (12.0-15.0); Lymphocyte # 0.63 X10^3/ul (0.83-4.51); Lymphocyte % 4.7 % (19-41); Mean Corp Hgb Conc 33.8 g/dL (32-36); Mean Corpuscular Hgb 30.7 pg (27.0-32.0); Mean Corpuscular Volume 90.8 fL (81-99); Mean Platelet Vol. 9.6 fl (6.2-12.0); Monocyte# 0.56 X10^3/uL; Monocyte% 4.2 % (0-10); NRBC Flagged by Analyzer 0 % (0-5); Neutrophil # 12.18 X10^3/uL (2.7-7.7); Neutrophil % 90.6 % (47-70); Platelet Count 354 K/mm3 (150-450); RBC Distribution Width CV 12.6 % (11.6-14.6); RBC Distribution Width SD 41.6 fl (35.1-43.9); Red Blood Count 3.71 M/mm3 (4.2-5.4); White Blood Count 13.4 K/mm3 (4.4-11.0)
[2024-10-16 07:45] LABS: ALB/GLOB Ratio 1.5 RATIO (0.9-2.4); AST(SGOT) 31 U/L (<=31); Alanine Aminotransfer ALT/SGPT 24 U/L (<=34); Albumin, Serum 3.8 g/dL (3.5-5.0); Alkaline Phosphatase 61 U/L (35-104); Anion Gap 13 (5-15); BUN 9 mg/dL (4-19); BUN/Creat Ratio 13.1 RATIO (10-20); Calcium,Total 8.8 mg/dL (7.6-11.0); Carbon Dioxide 20.3 mmol/L (21.0-32.0); Chloride 103 mmol/L (98-108); Creatinine, Serum 0.66 mg/dL (0.70-1.20); EST Glomerular Filtration Rate 116 (>60); Estimated Creatinine Clearance 96.54 ml/min (50-250); Globulin 2.6 g/dL (2.2-4.2); Glucose 127 mg/dL (70-99); Protein, Total 6.4 g/dL (5.9-8.4); Sodium Level 135 mmol/L (133-145)
--- NOTE | 2024-10-16 08:01 | PN.SURG_ITS ---
Subjective Subjective Patient seen and examined during AM rounds. She is found sitting out of bed in the chair partaking of her breakfast. She reports that she had some fleeting nausea this morning but overall is feeling better. Objective Data Objective Data Vital Signs: Vital Signs Temp Pulse Resp BP Pulse Ox O2 Del Method O2 Flow Rate 98.1 F 79 16 99/65 97 Room Air 6 10/16/24 04:02 10/16/24 04:02 10/16/24 04:02 10/16/24 04:02 10/16/24 04:02 10/16/24 04:02 10/15/24 16:00 Oxygen Flow Rate (L/min) 6 Oxygen Delivery Method Room Air Weight: 138 lb 7.205 oz Body Mass Index (BMI) 24.5 Intake & Output: Intake and Output for Last 24 Hours 10/14/24 10/15/24 10/16/24 23:59 23:59 23:59 Intake Total 1885 / 1885 Output Total 650 / 650 Balance 1885 / 1235 -650 / -650 Lab / Micro Data 10/16/24 05:47 10/16/24 05:47 Labs: Laboratory Results - last 24 hr 10/16/24 05:47: WBC 13.4 H, RBC 3.71 L, Hgb 11.4 L, Hct 33.7 L, MCV 90.8, MCH 30.7, MCHC 33.8, RDW Std Deviation 41.6, RDW Coeff of Crystal 12.6, Plt Count 354, MPV 9.6, Immature Gran % (Auto) 0.400, Neut % (Auto) 90.6 H, Lymph % (Auto) 4.7 L, [place] % (Auto) 4.2, Eos % (Auto) 0.0, Baso % (Auto) 0.1, Absolute Neuts (auto) 12.2 H, Absolute Lymphs (auto) 0.63 L, Nucleated RBC % 0, Sodium 135, Potassium 4.0, Chloride 103, Carbon Dioxide 20.3 L, Anion Gap 13, BUN 9, Creatinine 0.66 L , Estim Creat Clear Calc 96.54, Est GFR (MDRD) Non-Af 116, BUN/Creatinine Ratio 13.1, Glucose 127 H, Calcium 8.8, Total Bilirubin 1.10, AST 31, ALT 24, Alkaline Phosphatase 61, Total Protein 6.4, Albumin 3.8, Globulin 2.6, Albumin/Globulin Ratio 1.5 Radiography Diagnostic Testing: Radiology Impression Abdomen Ultrasound 10/15/24 06:04 IMPRESSION: Several stones and sludge seen within the gallbladder. The gallbladder demonstrates abnormal wall thickening. Although sonographic Quiles sign was negative, these findings are suggestive of acute cholecystitis, recommend further evaluation with cross-sectional imaging versus nuclear medicine biliary excretion scan. Reading Location: [id number] Physical Exam Const oriented x3 and no apparent distress Resp normal respiratory effort GI GI Narrative: Mild distention, operative dressings are intact with minimal bloody strikethrough of epigastric port site?otherwise unremarkable, appropriately tender about incisions with palpation. Assessment & Plan Assessment/Plan (1) Status post laparoscopic cholecystectomy: PLAN: Patient 39-year-old female postoperative day 1 from laparoscopic cholecystectomy with aborted cholangiography or intraoperative findings confirmed diagnosis of cholecystitis. Patient is progressing as expected. Pain is tolerable. She does describe some ongoing nausea. She is encouraged to take any pain medication with food. I will advance her diet and look to make sure she tolerates this advancement before considering discharge to home. Her labs demonstrate a expected postoperative leukocytosis but her chemistries show no evidence of biliary obstruction. Will follow-up her progress today with anticipated discharge later today. Shane Culver MD General Surgery Endocrine Surgery Pager: [facility] [address] [place] [address], [address] [place] [address] Office: [phone] (2) Cholecystitis, acute: Charges/Coding Visit Charges Inpatient E&M: 69615 Subs Hosp L2
[2024-10-16 08:40] VITALS: BP 102/70; PULSE 70; RESP 18; TEMP 36.7; O2SAT 100
[2024-10-16] MEDS: 0.9% Saline Lock 10 ML Syringe IV (08:54)
[2024-10-16] MEDS: Ondansetron 4 MG/2 ML Vial IV (08:54)
--- NOTE | 2024-10-16 10:31 | DCINST_ITS ---
Discharge Instructions Diet Discharge Diet: No restrictions and Low fat / Low cholesterol DC O2, CPAP, BIPAP needs Home O2 Discharge instructions: No Dressing / Incision Discharge Activity: May Not Drive (No driving while using narcotic pain medication) and May Shower (Postoperative day 1) May shower in (days): 1 Ice area for (Minutes): 20 Lifting Restrictions: No lifting greater than 15 pounds for 2 weeks after surgery Dressing / Incision Call your doctor if your incision/area has: Continuous Slow Oozing, Increased Pain/ Swelling, Increased Redness, Foul Smelling Discharge and Swelling at the incision site Call your doctor if you observe: Fever of 101 or Higher Remove Dressing in: 1 day (Please leave Steri-Strips intact until they fall off spontaneously or are taken off at your follow-up visit) Cleanse incision/area with: Soap & Water Follow Up Care Please Follow Up With: Shane Culver MD When: 7-10days postop Test Results: Test results from this visit will be discussed in further detail at your follow- up appointment, if applicable. Discharge Plan Admission Admit Date/Time: 10/15/24 11:10 Primary Reason for Your Visit: Cholecystitis Attending Provider: Shane Culver Primary Care Provider: Tamara Tobias Discharge Orders/Prescriptions Prescriptions: New oxycodone 5 mg Tablet 5 mg PO Q6H PRN PRN (Reason: Pain Score 6-10) 3 Days Qty: 14 0RF Continued spironolactone 100 mg tablet 100 mg PO DAILY Referrals / Follow Up: Tamara Tobias DO [Primary Care Provider] - Disposition Disposition (needs filled in before D/C Order can be placed): Home, Self Care
--- NOTE | 2024-10-16 10:31 | PCM.DC.SUM ---
Providers Date of Admission: 10/15/24 Primary Care Physician: Dr. Tamara Tobias DO Reason For Visit: ACUTE CHOLECYSTITIS Diagnosis Discharge Diagnosis (1) Status post laparoscopic cholecystectomy: Status: Acute Code(s): Z90.49 - Acquired absence of other specified parts of digestive tract Plan: Patient 39-year-old female postoperative day 1 from laparoscopic cholecystectomy with aborted cholangiography or intraoperative findings confirmed diagnosis of cholecystitis. Patient is progressing as expected. Pain is tolerable. She does describe some ongoing nausea. She is encouraged to take any pain medication with food. I will advance her diet and look to make sure she tolerates this advancement before considering discharge to home. Her labs demonstrate a expected postoperative leukocytosis but her chemistries show no evidence of biliary obstruction. Will follow-up her progress today with anticipated discharge later today. Shane Culver MD General Surgery Endocrine Surgery Pager: [facility] [address] [place] [address], [address] [place], [place] [id number] Office: [phone] (2) Cholecystitis, acute: Status: Acute Code(s): K81.0 - Acute cholecystitis Medications at Discharge Home Medications spironolactone 100 mg tablet 100 mg PO DAILY 10/15/24 oxycodone 5 mg tablet 5 mg PO Q6H PRN PRN Pain Score 6-10 3 days #14 tabs 10/16/24 Hospital Course Operations cholecystecomy Summary of Care Provided Hospital Course: Patient 39-year-old female who was admitted via the emergency department on 10/15/2024 with diagnosis of cholecystitis. She was taken emergently for laparoscopic cholecystectomy with aborted cholangiography due to an obliterated cystic duct. She was returned to the floor postoperatively where she experienced some nausea and uncontrolled pain. Thus she was monitored overnight in the hospital. Postoperative day 1 she describes some mild nausea but generally feeling better. Laboratories obtained that morning were reassuring with some expected postoperative leukocytosis but normal CMP values. Thus her diet was advanced to an unrestricted status and she tolerated this advancement without difficulty. Upon revisitation patient declared that she was feeling much improved and requested discharge to home. Given the clinical improvements discharged home was granted after reviewing postoperative instructions including activity restrictions as well as expectation for outpatient follow-up. Physical Exam Const alert, oriented x3 and no apparent distress Resp normal respiratory effort GI soft to palpation GI Narrative: Dressings appropriate. Appropriate tenderness to palpation about incisions Weight / BMI Weight Weight: 138 lb 7.205 oz Body Mass Index (BMI) 24.5 ABG / Lab / Microbiology Data 10/16/24 05:47 10/16/24 05:47 Laboratory: Laboratory Results - last 24 hr 10/16/24 05:47: WBC 13.4 H, RBC 3.71 L, Hgb 11.4 L, Hct 33.7 L, MCV 90.8, MCH 30.7, MCHC 33.8, RDW Std Deviation 41.6, RDW Coeff of Crystal 12.6, Plt Count 354, MPV 9.6, Immature Gran % (Auto) 0.400, Neut % (Auto) 90.6 H, Lymph % (Auto) 4.7 L, [place] % (Auto) 4.2, Eos % (Auto) 0.0, Baso % (Auto) 0.1, Absolute Neuts (auto) 12.2 H, Absolute Lymphs (auto) 0.63 L, Nucleated RBC % 0, Sodium 135, Potassium 4.0, Chloride 103, Carbon Dioxide 20.3 L, Anion Gap 13, BUN 9, Creatinine 0.66 L, Estim Creat Clear Calc 96.54, Est GFR (MDRD) Non-Af 116, BUN/Creatinine Ratio 13.1, Glucose 127 H, Calcium 8.8, Total Bilirubin 1.10, AST 31, ALT 24, Alkaline Phosphatase 61, Total Protein 6.4, Albumin 3.8, Globulin 2.6, Albumin/Globulin Ratio 1.5 D/C Instructions Discharge Diet: No restrictions May shower in (days): 1 Ice area for (Minutes): 20 Call your doctor if your incision/area has: Continuous Slow Oozing, Increased Pain/ Swelling, Increased Redness, Foul Smelling Discharge and Swelling at the incision site Call your doctor if you observe: Fever of 101 or Higher Cleanse incision/area with: Soap & Water DC O2, CPAP, BIPAP Needs Home O2 Discharge instructions: No Please Follow Up With: Shane Culver MD When: 7-10days postop Meaningful Use Info Meaningful Use Meaningful Use Diagnoses (Choose all that apply): None applicable Ischemic Stroke Statin Dosing Therapy Reference: STATIN DOSE THERAPY REFERENCE: * Patients > 75 years receive moderate or high dose statin therapy. * Patients 75 years or YOUNGER should receive HIGH intensity statin dose unless contraindicated. You will be required to document reason for non-treatment if statin daily dose does not meet guidelines. HIGH DOSE STATIN THERAPY DAILY Atorvastatin > than or = to 40 mg Rosuvastatin > than or = to 20 mg Amlodipine + Atorvastatin > than or = to 2.5/40 mg Ezetimibe + Simvastatin 10/80 mg Simvastatin 80mg Discharge Plan Admission Admit Date/Time: 10/15/24 11:10 Primary Reason for Your Visit: Cholecystitis Attending Provider: Shane Culver Primary Care Provider: Tamara Tobias Discharge Orders/Prescriptions Prescriptions: New oxycodone 5 mg Tablet 5 mg PO Q6H PRN PRN (Reason: Pain Score 6-10) 3 Days Qty: 14 0RF Continued spironolactone 100 mg tablet 100 mg PO DAILY Referrals / Follow Up: Tamara Tobias DO [Primary Care Provider] - Disposition Disposition (needs filled in before D/C Order can be placed): Home, Self Care Charges/Coding Visit Charges Inpatient E&M: 10347 Disch Hosp
--- NOTE | 2024-10-16 10:55 | CASEMGMT ---
MARISSA SALAZAR Assessment: Face to Face with pt for initial transition planning/care coordination assessment. MARISSA SALAZAR introduced self and role at [facility], pt voices understanding and consents to assessment. Pt is A&O x4 and answers all questions appropriately at this time. Pt sitting up in chair with and 2 children at bedside. Pt agreeable to assessment with visitors present. Care providers, pharmacy, and demographics verified/updated. Admitting Dx: acute cholecystitis PCP:Micheline Specialists: homero Mcneill; Janusz [employer] Preferred [facility]acy: [facility] Insurance: [employer] Prescription Benefit: yes LNOK: Julius Rodríguez, Living Arrangements: Pt lives with and 2 children in a two story home with 3 steps to enter. Pt reports she is I in ADL/IADLs and works. She states she has family who can assist her post op. Transportation: Pt drives self and denies concerns with transportation. DME:Denies HHC/SNF: Denies hx of Pt states no concerns with going home at time of dc. Pt states no further concerns/needs. CM to follow. Advised pt to ask CM if any further questions/concerns/needs arise, voices understanding. Pt Goal: Home Plan: Home Estefany ANN CM
[2024-10-16 13:59] VITALS: BP 102/64; PULSE 67; RESP 18; TEMP 36.9; O2SAT 99
--- NOTE | 2024-10-19 08:59 | POSTOPAN2_ITS ---
Anesthesia Postop Eval I Sum Postop Eval Completion status Anesthesia document: Postop Eval 1 completed: Yes Anesthesia Postop Eval I Summary Anesthesia Postop Eval I Summary: Anesthesia Postop Eval I: Assessment Summary Airway patent Yes 10/15/24 16:00 TUBING MILL OPERATOR.HARRIETOBAnabel Spontaneous unlabored Yes 10/15/24 16:00 TUBING MILL OPERATOR.AMANDA respirations Mental status Asleep 10/15/24 16:00 TUBING MILL OPERATOR.AMANDA nausea No 10/15/24 16:00 TUBING MILL OPERATOR.AMANDA Vomiting No 10/15/24 16:00 TUBING MILL OPERATOR.AMANDA Anesthesia Postop Eval I: Fluid Summary Crystalloid volume administer 1,500 10/15/24 16:00 TUBING MILL OPERATOR.HARRIETOBY (ml) Colloids volume administered ( ml) Blood Product volume administered (ml) Total IV fluid infused 1,500 10/15/24 16:00 TUBING MILL OPERATOR.AMANDA Anesthesia Postop Eval I: Summary Notes Anesthesia Complication No 10/15/24 16:00 TUBING MILL OPERATOR.AMANDA Anesthesia Complication Comment: Post-operative progress note Anesthesia: Postop Eval II Evaluation Mental status: Awake and Calm Pain Level: 1 nausea: No Vomiting: No Complications Anesthesia Complication: No
--- NOTE | 2024-10-19 08:59 | PCM.POSTANE2 ---
Anesthesia Postop Eval I Sum Postop Eval Completion status Anesthesia document: Postop Eval 1 completed: Yes Anesthesia Postop Eval I Summary Anesthesia Postop Eval I Summary: Anesthesia Postop Eval I: Assessment Summary Airway patent Yes 10/15/24 16:00 HARVEST SUPERVISOR.HARRIETOBAnabel Spontaneous unlabored Yes 10/15/24 16:00 HARVEST SUPERVISOR.AMANDA respirations Mental status Asleep 10/15/24 16:00 HARVEST SUPERVISOR.AMANDA nausea No 10/15/24 16:00 HARVEST SUPERVISOR.AMANDA Vomiting No 10/15/24 16:00 HARVEST SUPERVISOR.AMANDA Anesthesia Postop Eval I: Fluid Summary Crystalloid volume administer 1,500 10/15/24 16:00 HARVEST SUPERVISOR.HARRIETOBY (ml) Colloids volume administered ( ml) Blood Product volume administered (ml) Total IV fluid infused 1,500 10/15/24 16:00 HARVEST SUPERVISOR.AMANDA Anesthesia Postop Eval I: Summary Notes Anesthesia Complication No 10/15/24 16:00 HARVEST SUPERVISOR.AMANDA Anesthesia Complication Comment: Post-operative progress note Anesthesia: Postop Eval II Evaluation Mental status: Awake and Calm Pain Level: 1 nausea: No Vomiting: No Complications Anesthesia Complication: No
== END 2024-10-16 15:45 | disposition home or self-care (01) | DRG 419 ==
LOC: ED 10:55 → MS3 10-16 10:31
PROVIDERS: Admitting Provider Surgery; Emergency Provider Emergency Medicine; PCP Family Medicine; Referring Provider Surgery; Visit Provider Surgery
PROC: 0FT44ZZ Resection of Gallbladder, Percutaneous Endoscopic Approach (ICD-10-PCS; CPT 47610; principal; 2024-10-15 12:10)
DX: K81.0 Acute cholecystitis (principal); K82.8 Other specified diseases of gallbladder; L70.9 Acne, unspecified
CPT/HCPCS: 76705; 80048; 80076; 83690; 84703; 85025; 88304; 93005; 99283; A4216; J2405